=== PATIENT | female | born 1995 | race Caucasian/White ===

== ENCOUNTER 2017-10-11 11:00 | Emergency (ER) | payer OTHER, SELFPAY ==
[2017-10-11 11:13] VITALS: BP 123/78; PULSE 84; RESP 14; TEMP 37.1; O2SAT 100; BMI 29.0
--- NOTE | 2017-10-11 11:41 | ED_ITS ---
HPI - Female Genitourinary General Chief complaint: Vaginal Bleeding Stated complaint: VAGINAL BLEEDING/ABOMDINAL PAIN Time Seen by Provider: 10/11/17 11:06 Source: patient Mode of arrival: ambulatory Limitations: no limitations History of Present Illness HPI Narrative: Patient is a 22-year-old female here for evaluation of vaginal bleeding and lower abdominal pain. She states that it has been going on for the past 2 weeks. She states that she is shelter through her pack of oral control pills. She states that this is the 2nd month she has been on this medication. She denies any urinary symptoms. She states she has been diagnosed with PID in the past however she states that the cultures were negative at that time. This was done by a automobile club information clerk provider. She is concern for PID again. No other vaginal discharge except for the bleeding. No fevers. No skin rashes. No change in bowel habits. Related Data Previous Rx's Medication Instructions Recorded doxycycline hyclate 100 mg PO BID 14 Days #28 cap 10/11/17 hydrocodone-acetaminophen [Kinta] 1 tab PO Q6H PRN #7 tab 10/11/17 Allergies Allergy/AdvReac Type Severity Reaction Status Date / Time dapsone Allergy Verified 10/11/17 11:17 erythromycin base Allergy Verified 10/11/17 11:17 Review of Systems Constitutional Denies fever(s) Cardiovascular Denies chest pain and Denies dyspnea Respiratory Denies dyspnea Gastrointestinal Gastrointestinal: Reports abdominal pain, Denies diarrhea, Denies nausea and Denies vomiting Genitourinary Comments: Vaginal bleeding Musculoskeletal Denies myalgias and Denies arthralgias Integumentary/Breasts Denies lesions and Denies rash Hematologic/Lymphatic Denies easy bleeding and Denies easy bruising [facility] Medical History Chronic joint pain (Acute) Surgical History No pertinent past surgical history (Acute) Social History Smoking Status: Never smoker Exam Initial Vital Signs Initial Vital Signs: Vital Signs Temperature 98.8 F 10/11/17 11:13 Pulse Rate 84 10/11/17 11:13 Respiratory Rate 14 10/11/17 11:13 Blood Pressure 123/78 H 10/11/17 11:13 Pulse Oximetry 100 10/11/17 11:13 Resp Effort & Inspection: normal respiratory effort Auscultation: clear to auscultation bilaterally Cardio Rate: regular rate Rhythm: regular rhythm GI Other: Lower abdominal pain without rebound or guarding Back/Spine/Pelvis Back: No CVA tenderness Skin Lesions: no lesions Rashes: no rashes Neuro General: alert, awake and oriented x3 Cognition: normal cognition Speech: speech normal Gait: normal gait Motor: muscle tone normal throughout Sensory Exam: no sensory deficits noted Extrem General: normal to inspection and capillary refill normal Psych Appearance: grossly normal and well kempt Course Orders Ordered: ED Orders 10/11/17 11:55 Complete Blood Count AUTO DIFF Stat Comprehensive Metabolic Panel Stat Lipase Stat Discontinued Medications Ceftriaxone Sodium (Rocephin) 250 mg IM NOW ONE Stop: 10/11/17 13:28 Last Admin: 10/11/17 13:53 Dose: 250 mg Vital Signs - 8 hr 10/11/17 11:13 10/11/17 13:36 10/11/17 14:07 Temperature 98.8 F 98.3 F Pulse Rate 84 78 74 Respiratory Rate 14 17 16 Blood Pressure 123/78 H 123/73 H Blood Pressure [Right Arm] 129/74 H Pulse Oximetry 100 100 100 MDM - Female Genitourinary Lab Data Attestation: I reviewed the patient's lab results. Result diagrams: 10/11/17 11:55 10/11/17 11:55 Lab Results 10/11/17 10/11/17 10/11/17 Range/Units 11:55 11:55 Unknown WBC 4.0 L (4.5-11.0) X10^3/uL RBC 4.75 (4.0-5.2) X10^6/uL Hgb 13.4 (12.0-16.0) g/dL Hct 38.7 (36-46) % MCV 81.5 (80-100) fL MCH 28.3 (26-34) PG MCHC 34.8 (30-36) % RDW 12.2 (11.6-14.8) % Plt Count 197 (150-400) X10^3/uL Neut % (Auto) 60.4 (50-75) % Lymph % (Auto) 31.5 (25-40) % [place] % (Auto) 6.1 (3-14) % Eos % (Auto) 1.3 L (2-4) % Baso % (Auto) 0.7 (0-2) % Neut # (Auto) 2400 L (4978-7081) /uL Sodium 140 (137-145) mmol/L Potassium 4.2 (3.4-5.1) mmol/L Chloride 104 (98-107) mmol/L Carbon Dioxide 24 (22-32) mmol/L BUN 13 (7-17) mg/dL Creatinine 0.80 (0.52-1.04) mg/dL Estimated GFR > 60.0 (>60) mL/min BUN/Creatinine Ratio 16.3 (6-22) Glucose 86 (70-100) mg/dL Calcium 9.4 (8.4-10.2) mg/dL Total Bilirubin 0.4 (0.2-1.3) mg/dL AST 24 (14-36) IU/L ALT 28 (9-52) IU/L Alkaline Phosphatase 48 (38-126) U/L Total Protein 7.4 (6.3-8.2) g/dL Albumin 4.3 (3.5-5.0) g/dL Globulin 3.1 (1.7-4.1) g/dL Albumin/Globulin Ratio 1.4 (1.0-2.8) Lipase 190 (23-300) U/L Ur Chlamydia DNA (PCR) Not detected N gonorrhoeae DNA (PCR) Not detected MDM Narrative Medical decision making narrative: Patient's urine is unremarkable. test was negative. Labs unremarkable. I did not perform a pelvic exam because the patient did have lower abdominal pain and she states that she was concerned about PID. We did discuss that we could do a pelvic exam versus presumptively treating her with antibiotics versus is waiting until lab results returned seeing as how gonorrhea and chlamydia are the most likely source. Patient opted to just and the treatment performed. I did not feel her physical exam was consistent with an ovarian torsion. She did state that the vaginal bleeding has improved over the past couple days however her lower abdominal pain was worsening. She was trying nonsteroidal anti-inflammatories at home. Had a long discussion with her regarding her symptoms. She was given IM Rocephin and will send home with doxycycline given her allergy to erythromycin. She was instructed to continue her control pills. She was instructed that she needed to contact her primary doctor and/or her automobile club information clerk doctor for follow- up to further evaluate other potential issue such as endometriosis. Patient was given return precautions. She expressed understanding and agreement with plan. Discharge Plan Departure Patient Disposition: Home Clinical Impression: Vaginal bleeding, Acute pelvic inflammatory disease (PID) Discharge Date/Time: 10/11/17 14:08 Interventions: ED Discharge Assessment Last Done: 10/11/17 14:07 Instructions: DI for Pelvic Inflammatory Disease, DI for Vaginal Bleeding Activity Restrictions/Additional Instructions: Recommend that you take all of your medications as directed. Contact your primary care doctor and/or your automobile club information clerk for a follow-up. Continue your control pills as directed. Return to the emergency department for any new or worsening symptoms Prescriptions: New doxycycline hyclate 100 mg capsule 100 mg PO BID 14 Days Qty: 28 RF: 0 hydrocodone-acetaminophen [Kinta] 5-325 mg tablet 1 tab PO Q6H PRN (Reason: pain) Qty: 7 RF: 0
[2017-10-11 12:12] LABS: Add Manual Diff / Slide Review NO; Basophils Percent Auto 0.7 % (0-2); Eosinophils Percent Auto 1.3 % (2-4); Hematocrit 38.7 % (36-46); Hemoglobin 13.4 g/dL (12.0-16.0); Lymphocytes Percent Auto 31.5 % (25-40); Mean Corpuscular HGB Conc 34.8 % (30-36); Mean Corpuscular Hemoglobin 28.3 PG (26-34); Mean Corpuscular Volume 81.5 fL (80-100); Monocytes Percent Auto 6.1 % (3-14); Neutrophils Absolute Auto 2400 /uL (3000-5900); Neutrophils Percent Auto 60.4 % (50-75); Platelet Count 197 X10^3/uL (150-400); Red Blood Cell Count 4.75 X10^6/uL (4.0-5.2); Red Cell Distribution Width 12.2 % (11.6-14.8)
[2017-10-11 12:17] LABS: Alanine Aminotransferase 28 IU/L (9-52); Albumin 4.3 g/dL (3.5-5.0); Albumin Globulin Ratio 1.4 (1.0-2.8); Alkaline Phosphatase 48 U/L (38-126); Aspartate Aminotransferase 24 IU/L (14-36); BUN Creatinine Ratio 16.3 (6-22); Bilirubin Total 0.4 mg/dL (0.2-1.3); Blood Urea Nitrogen 13 mg/dL (7-17); Calcium 9.4 mg/dL (8.4-10.2); Carbon Dioxide 24 mmol/L (22-32); Chloride 104 mmol/L (98-107); Estimated Glomerular Filt Rate > 60.0 mL/min (>60); Globulin 3.1 g/dL (1.7-4.1); Glucose 86 mg/dL (70-100); HEMOLYSIS < 15 (0-50); Lipase 190 U/L (23-300); Potassium 4.2 mmol/L (3.4-5.1); Sodium 140 mmol/L (137-145); Total Protein 7.4 g/dL (6.3-8.2)
[2017-10-11 13:36] VITALS: BP 129/74; PULSE 78; RESP 17; O2SAT 100
[2017-10-11] MEDS: cefTRIAXone 500 MG VIAL 250 MG IM (13:53)
[2017-10-11 14:07] VITALS: BP 123/73; PULSE 74; RESP 16; TEMP 36.8; O2SAT 100
[2017-10-11 15:11] LABS: Urine N gonorrhoeae NOT DETECTED
[2017-10-11 15:43] LABS: Urine Chlamydia NOT DETECTED
== END 2017-10-11 14:08 | disposition home or self-care (01) ==
PROVIDERS: Emergency Provider Emergency Medicine
DX: N73.0 Acute parametritis and pelvic cellulitis (principal); N93.9 Abnormal uterine and vaginal bleeding, unspecified
CPT/HCPCS: 36415; 80053; 81003; 81025; 83690; 85025; 87491; 87591; 96372; 99282; 99283; J0696

== ENCOUNTER → 2020-03-21 12:44 | Outpatient (CLI) | payer OTHER, MEDICAID, SELFPAY ==
--- NOTE | 2020-03-21 12:46 | DI.US.S_ITS ---
PROCEDURE: US PELVIC COMPLETE INDICATIONS: PAIN TECHNIQUE: Real-time scanning was performed of the pelvic organs, with image documentation. Additional endovaginal scanning was necessary due to incomplete visualization of the adnexal and endometrial structures by transabdominal scanning. COMPARISON: None. FINDINGS: Uterus: Uterus is retroverted and normal in size at 6.4 x 3.4 x 4.2 cm. The endometrium measures 4.1 mm in combined thickness. Ovaries: Right ovary measures 4.0 x 2.3 x 3.2 cm and the left 2.1 x 2.6 x 1.6 cm. Regressing physiologic cyst associated with the right ovary measuring up to 2.3 cm. Other: No pathologic free abdominal or pelvic fluid. IMPRESSION: 2.3 cm regressing physiologic right ovarian cyst. Dictated by: Rafael ATKINSON Interpreted: William Nolasco MD on 03/21/2020 at 13:28 Approved by: William Nolasco M.D. on 03/21/2020 at 15:21
== END ==
PROVIDERS: PCP Registered Nurse; Referring Provider Registered Nurse; Visit Provider Registered Nurse
DX: N94.6 Dysmenorrhea, unspecified (principal); N92.0 Excessive and frequent menstruation with regular cycle; N83.291 Other ovarian cyst, right side
CPT/HCPCS: 76830; 76856

== ENCOUNTER → 2020-05-29 15:03 | Outpatient (CLI) | payer OTHER, MEDICAID, SELFPAY | PROVIDERS: PCP Registered Nurse; Visit Provider Obstetrics & Gynecology | DX: N75.0 Cyst of Bartholin's gland (principal) | CPT/HCPCS: 87070; 87075; 87077; 87186; 87205 ==

== ENCOUNTER 2020-10-26 10:24 | Emergency (ER) | payer OTHER, MEDICAID, SELFPAY ==
[2020-10-26 10:32] VITALS: BP 139/87; PULSE 77; RESP 16; TEMP 36.8; O2SAT 99; BMI 34.9
--- NOTE | 2020-10-26 11:27 | DI.RAD.S_ITS ---
PROCEDURE: XR CHEST 2V INDICATIONS: chest pain TECHNIQUE: 2 views of the chest were acquired. COMPARISON: None. FINDINGS: Surgical changes and devices: None. Lungs and pleura: An incomplete inspiratory result is noted, causing a crowded appearance to the lung markings. No focal infiltrates are seen. No pneumothorax or significant pleural effusions are seen. Mediastinum: Mediastinal contours are normal. Heart size is normal. Bones and chest wall: No suspicious bony abnormalities. Soft tissues appear unremarkable. IMPRESSION: No acute cardiopulmonary process is seen. Dictated by: Jericho Drake M.D. on 10/26/2020 at 10:58 Approved by: Jericho Drake M.D. on 10/26/2020 at 10:58
--- NOTE | 2020-10-26 12:16 | ED_ITS ---
HPI - Chest Pain General Chief Complaint: Chest Pain Stated Complaint: chest pain and joint pain Time Seen by Provider: 10/26/20 12:12 Source: patient Mode of arrival: Ambulatory Limitations: no limitations History of Present Illness HPI narrative: Patient is a 25-year-old female with multiple immune issues and joint problems, including Bechets. She was on his immunosuppressants for a number of years but when she went to college she stopped. However over the past few months things have gotten worse. 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 Here today because she has had a few weeks of increasing sternal pain. Hurts every time she moves or breathes last night it was significantly worse. She denies shortness of breath fever or chills. She also is having chronic right heel pain were her Achilles tendon inserts. That are so bad that she is using a cane. She is tearful she cannot take NSAIDs he had been taking Tylenol and nothing is helping. She currently does not have any other joint pains Related Data Home Medications Medication Instructions Recorded Confirmed clonazepam 0.5 mg tablet 0.5 mg PO DAILY 11/15/19 09/22/20 oxcarbazepine 600 mg tablet 600 mg PO BID 11/15/19 09/22/20 (Trileptal) sertraline 100 mg tablet (Zoloft) 100 mg PO DAILY 11/15/19 09/22/20 quetiapine 100 mg tablet (Seroquel) 100 mg PO BEDTIME 03/14/20 09/22/20 Previous Rx's Medication Instructions Recorded clindamycin phosphate 1 % topical 1 applic TOPICAL DAILY #60 g 01/15/20 gel triamcinolone acetonide 0.025 % 1 applic TOPICAL BID #15 g 09/22/20 topical cream prednisone 10 mg tablet 10 mg PO DAILY #30 tab 10/26/20 Allergies Allergy/AdvReac Type Severity Reaction Status Date / Time dapsone Allergy Verified 05/29/20 14:11 erythromycin base Allergy Verified 05/29/20 14:11 Review of Systems Review of Systems Narrative: GENERAL: Denies chills, fatigue, malaise, fever, sweats, travel HEENT: Denies sinus pain, ear pain, sore throat, difficulty swallowing, neck pain RESPIRATORY: Denies dyspnea, cough, wheezing, hemoptysis, sputum. CARDIOVASCULAR: See HPI GASTROINTESTINAL: Denies nausea, vomiting, abdominal pain, diarrhea, constipation, melena. : Denies dysuria, frequency, incontinence, hematuria, urinary retention, flank pain. MUSCULOSKELETAL: See HPI SKIN: No rash, no erythema, no pruritus NEUROLOGIC: Denies weakness, dizziness, headache, numbness, change in speech, confusion PSYCHIATRIC: No concerning psychosocial issues. 12 point review of systems is negative except for those stated above and HPI Patient History Medical History Chicken pox Chronic joint pain Dermatitis Memory impairment Surgical History Anesthesia History of bone marrow biopsy No pertinent past surgical history Cartwright teeth removed Family History Father Mental health problem Mother Mental health problem Brother Mental health problem Sister Mental health problem Grandmother Mental health problem Aneurysm Grandfather Hypertension Hyperlipidemia Mental health problem Grandmother Hypertension Hyperlipidemia Psoriatic arthritis Social History Smoking Status: Never smoker Smoking Status: Never smoker alcohol intake frequency: holidays/special occasions only Substance Use Type: does not use Exam Initial Vital Signs Initial Vital Signs: Vital Signs Temperature 98.3 F 10/26/20 10:32 Pulse Rate 77 10/26/20 10:32 Respiratory Rate 16 10/26/20 10:32 Blood Pressure 139/87 10/26/20 10:32 Pulse Oximetry 99 10/26/20 10:32 GENERAL: Tearful going 5-year-old female HEENT: Head atraumatic,EOMI, pupils reactive, face symmetric, moist mucous membranes CARDIOVASCULAR: Regular rate and rhythm without murmurs, rubs or gallops. RESPIRATORY: Breath sounds equal bilaterally, no wheezes rales or rhonchi. ABDOMEN: Soft, nontender. Normoactive bowel sounds all 4 quadrants. No guarding or rebound. EXTREMITIES: Normal range of motion, no clubbing or edema. Neurovascularly i ntact Right heel pain off at insertion of Achilles but Achilles is intact able to flex and extend. Calf is soft NEUROLOGICAL: Alert and oriented x4.Normal gait and speech. SKIN: Warm, dry, no laceration, no petechiae, no rashes or lesions. Course Orders Ordered: ED Orders 10/26/20 10:40 EKG-12 Lead Routine 10/26/20 11:27 Chest [XR chest 2V] Stat 10/26/20 12:11 COVID19 -Nasal swab/Pre-Proc Stat Vital Signs Vital signs: Vital Signs - 8 hr 10/26/20 10:32 Temperature 98.3 F Pulse Rate 77 Respiratory Rate 16 Blood Pressure 139/87 Pulse Oximetry 99 MDM - Chest Pain Lab Data Result diagrams: 10/26/20 12:39 10/26/20 12:39 Labs: Lab Results 10/26/20 10/26/20 10/26/20 Range/Units 12:09 12:39 12:39 WBC 5.2 (4.5-11.0) X10^3/uL RBC 4.59 (4.0-5.2) X10^6/uL Hgb 14.0 (12.0-16.0) g/dL Hct 40.1 (36-46) % MCV 87.5 (80-100) fL MCH 30.5 (26-34) PG MCHC 34.8 (30-36) % RDW 12.5 (11.6-14.8) % Plt Count 193 (150-400) X10^3/uL Neut % (Auto) 63.9 (50-75) % Lymph % (Auto) 23.4 L (25-40) % [place] % (Auto) 5.3 (3-14) % Eos % (Auto) 4.4 H (2-4) % Baso % (Auto) 3.0 H (0-2) % Neut # (Auto) 3300 (7907-7857) /uL Lymph # (Auto) 1200 (4687-3397) /uL [place] # (Auto) 300 (0-900) /uL Eos # (Auto) 200 (0-450) /uL Baso # (Auto) 200 H (0-100) /uL ESR 7 (0-20) MM/HR Sodium 137 (137-145) mmol/L Potassium 4.3 (3.4-5.1) mmol/L Chloride 106 (98-107) mmol/L Carbon Dioxide 25 (22-32) mmol/L BUN 9 (7-17) mg/dL Creatinine 0.86 (0.52-1.04) mg/dL Estimated GFR > 60.0 (>60) mL/min BUN/Creatinine Ratio 10.5 (6-22) Glucose 90 (70-100) mg/dL Calcium 9.1 (8.4-10.2) mg/dL Total Bilirubin 0.5 (0.2-1.3) mg/dL AST 23 (14-36) IU/L ALT 17 (<35) IU/L Alkaline Phosphatase 85 (38-126) U/L Total Creatine Kinase 61 (30-135) U/L CK-MB (CK-2) TNP CK-MB (CK-2) Rel Index TNP Troponin I < 0.012 (0.01-0.034) ng/mL C-Reactive Protein 1.2 H (<1.0) mg/dL Total Protein 7.7 (6.3-8.2) g/dL Albumin 4.4 (3.5-5.0) g/dL Globulin 3.3 (1.7-4.1) g/dL Albumin/Globulin Ratio 1.3 (1.0-2.8) SARS-CoV-2 (PCR) Negative (Negative) Imaging Data Chest x-ray: Radiologist's Impression: PROCEDURE:? XR CHEST 2V ? INDICATIONS:? chest pain ? TECHNIQUE:? 2 views of the chest were acquired.? ? COMPARISON:? None. ? FINDINGS:? ? Surgical changes and devices:? None.? ? Lungs and pleura:? An incomplete inspiratory result is noted, causing a crowded appearance to the lung markings.? No focal infiltrates are seen.? No pneumothorax or significant pleural effusions are seen. ? ? Mediastinum:? Mediastinal contours are normal.? Heart size is normal.? ? Bones and chest wall:? No suspicious bony abnormalities.? Soft tissues appear unremarkable.? ? IMPRESSION:? ? No acute cardiopulmonary process is seen.? Dictated by: Jericho Drake M.D. on 10/26/2020 at 10:58 ? ? ECG Data Interpretation: Normal sinus rhythm rate 70 LA interval 140 QRS [address] changes T-wave inversions MDM Narrative Medical decision making narrative: Patient's sternum is quite tender to touch seems to be inflammation and musculoskeletal. Blood work is overall reassuring. No significant elevations an ESR or CRP. She is unable to take NSAIDs secondary to a GI bleed. Will try prednisone she says she was previously on prednisone for number of years she does not want to be on it for years but is willing to take it for short time. Will give her a small taper. She has no sign of rupture her Achilles Discharge Plan Departure Patient Disposition: Home Clinical Impression: Atypical chest pain Achilles tendinitis Qualifiers: Laterality: right Qualified Code(s): M76.61 - Achilles tendinitis, right leg Instructions: Achilles Tendinopathy, DI for Atypical Chest Pain Activity Restrictions/Additional Instructions: *You have been diagnosed with Achilles tendinitis, atypical chest pain *What to do: At this time I believe your pain to be from probably inflammatory process. Lets try course of prednisone with close follow-up with her primary care provider *Continue to take medications as directed--> SENT TO [facility] Prednisone 40 mg for 3 days, 30 mg for 3 days, 20 mg for 3 days, 10 mg for 3 days *Follow up with your primary care provider in 2-3 days *Return to ER if you should have increasing pain, shortness of breath, feveror any new, worsening or concerning symptoms Prescriptions: New prednisone 10 mg tablet 10 mg PO DAILY Qty: 30 RF: 0 No Action clindamycin phosphate 1 % gel 1 applic topical DAILY Qty: 60 RF: 0 oxcarbazepine [Trileptal] 600 mg tablet 600 mg PO BID RF: 0 sertraline [Zoloft] 100 mg tablet 100 mg PO DAILY RF: 0 clonazepam 0.5 mg tablet 0.5 mg PO DAILY RF: 0 quetiapine [Seroquel] 100 mg tablet 100 mg PO BEDTIME RF: 0 triamcinolone acetonide 0.025 % cream 1 applic topical BID Qty: 15 RF: 1 Referrals: Dulce Rose ARNP [Primary Care Provider] -
[2020-10-26 12:32] LABS: COVID19 -Nasal RAPID Negative (Negative)
[2020-10-26 12:46] LABS: Add Manual Diff / Slide Review NO; Basophils Absolute Auto 200 /uL (0-100); Eosinophils Absolute Auto 200 /uL (0-450); Eosinophils Percent Auto 4.4 % (2-4); Hematocrit 40.1 % (36-46); Lymphocytes Absolute Auto 1200 /uL (1100-4500); Lymphocytes Percent Auto 23.4 % (25-40); Mean Corpuscular HGB Conc 34.8 % (30-36); Mean Corpuscular Hemoglobin 30.5 PG (26-34); Mean Corpuscular Volume 87.5 fL (80-100); Monocytes Absolute Auto 300 /uL (0-900); Monocytes Percent Auto 5.3 % (3-14); Neutrophils Absolute Auto 3300 /uL (1500-7000); Neutrophils Percent Auto 63.9 % (50-75); Platelet Count 193 X10^3/uL (150-400); Red Blood Cell Count 4.59 X10^6/uL (4.0-5.2); Red Cell Distribution Width 12.5 % (11.6-14.8); White Blood Cell Count 5.2 X10^3/uL (4.5-11.0)
[2020-10-26 12:56] LABS: Alanine Aminotransferase 17 IU/L (<35); Albumin 4.4 g/dL (3.5-5.0); Albumin Globulin Ratio 1.3 (1.0-2.8); Alkaline Phosphatase 85 U/L (38-126); Aspartate Aminotransferase 23 IU/L (14-36); BUN Creatinine Ratio 10.5 (6-22); Bilirubin Total 0.5 mg/dL (0.2-1.3); Blood Urea Nitrogen 9 mg/dL (7-17); Calcium 9.1 mg/dL (8.4-10.2); Carbon Dioxide 25 mmol/L (22-32); Chloride 106 mmol/L (98-107); Creatine Kinase 61 U/L (30-135); Estimated Glomerular Filt Rate > 60.0 mL/min (>60); Globulin 3.3 g/dL (1.7-4.1); Glucose 90 mg/dL (70-100); HEMOLYSIS < 15 (0-50); Potassium 4.3 mmol/L (3.4-5.1); Sodium 137 mmol/L (137-145); Total Protein 7.7 g/dL (6.3-8.2)
[2020-10-26 13:07] LABS: Troponin I < 0.012 ng/mL (0.01-0.034)
[2020-10-26 13:11] LABS: Erythrocyte Sedimentation Rate 7 MM/HR (0-20)
[2020-10-26 13:30] VITALS: BP 139/87; PULSE 77; RESP 18; O2SAT 97
[2020-10-26 13:48] LABS: C-Reactive Protein Quant 1.2 mg/dL (<1.0)
== END 2020-10-26 13:30 | disposition home or self-care (01) ==
PROVIDERS: Emergency Provider Emergency Medicine; PCP Registered Nurse
DX: R07.89 Other chest pain (principal); M76.61 Achilles tendinitis, right leg; Z20.822 Contact with and (suspected) exposure to COVID-19
CPT/HCPCS: 36415; 71046; 80053; 82550; 84484; 85025; 85651; 86140; 87635; 93005; 99282; 99284; C9803

== ENCOUNTER 2020-11-27 09:24 | Emergency (ER) | payer OTHER, MEDICAID, SELFPAY ==
[2020-11-27] VITALS (14 sets, daily range): BP systolic 106–134; BP diastolic 55–82; PULSE 56–79; RESP 12–35; TEMP 37.1; O2SAT 95–100; BMI 37.9
--- NOTE | 2020-11-27 09:37 | ED_ITS ---
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 Three days ago she noted right eye and right-sided head pain. She has had a history of uveitis but this feels different and she is not noting any scleral irritation in the right eye. S she notes that she has been light sensitive over the last 3 days. She complai ns of some occipital insertion pain on the right side with no prior trauma. She does carry a diagnosis of migraine. She notes that there have been a number of medications in the last couple of days lithium was started 2 days ago as well as indomethacin and ramelteon for insomnia. She spoke with her recovery analyst this morning who was worried about a stroke and suggested that she come in for fur ther evaluation. Patient is exceptionally concerned about her family history and the right-sided headache and is convinced that she has both a brain tumor and an aneurysm. That she had both a brain CT and MRI in April of 2019 that were unremarkable(these were done at [facility]). Related Data Home Medications Medication Instructions Recorded Confirmed clonazepam 0.5 mg tablet 0.5 mg PO DAILY 11/15/19 09/22/20 oxcarbazepine 600 mg tablet 600 mg PO BID 11/15/19 09/22/20 (Trileptal) sertraline 100 mg tablet (Zoloft) 100 mg PO DAILY 11/15/19 09/22/20 quetiapine 100 mg tablet (Seroquel) 100 mg PO BEDTIME 03/14/20 09/22/20 Previous Rx's Medication Instructions Recorded clindamycin phosphate 1 % topical 1 applic TOPICAL DAILY #60 g 01/15/20 gel triamcinolone acetonide 0.025 % 1 applic TOPICAL BID #15 g 09/22/20 topical cream prednisone 10 mg tablet 10 mg PO DAILY #30 tab 10/26/20 Allergies Allergy/AdvReac Type Severity Reaction Status Date / Time dapsone Allergy Verified 11/27/20 09:31 erythromycin base Allergy Verified 11/27/20 09:31 Review of Systems Review of Systems Narrative: Remainder of complete review of systems is otherwise unremarkable except for that included in the HPI. Patient History Medical History (Updated 11/27/20 @ 13:51 by Nicci Gaming MD) Behcet's disease Chicken pox Chronic joint pain Depression Dermatitis Memory impairment Migraines Seizures Surgical History Anesthesia History of bone marrow biopsy No pertinent past surgical history [place] teeth removed Family History Father Mental health problem Mother Mental health problem Brother Mental health problem Sister Mental health problem Grandmother Mental health problem Aneurysm Grandfather Hypertension Hyperlipidemia Mental health problem Grandmother Hypertension Hyperlipidemia Psoriatic arthritis Social History Smoking Status: Never smoker Smoking Status: Never smoker alcohol intake frequency: holidays/special occasions only Substance Use Type: marijuana Exam Narrative Exam Narrative: General: Healthy appearing, anxious and frightened but able to give a complete and coherent history. Well-nourished well-developed HEENT: Moist mucous membranes, normal sclera with reactive pupils, no reported visual changes Neck: No JVD, supple. Tenderness at the occipital insertion right side Respiratory: Lungs are clear to auscultation, no wheezing no rales no rhonchi. Full and symmetrical air movement Cardiac: Regular rate and rhythm no murmurs no bruits Abdomen: Soft, nontender, good bowel tones, no flank pain Skin: Warm and dry, no rashes Neurologic: Grossly neurologically intact with no obvious asymmetries or abnormalities Extremities: No trauma, well perfused Psych: Cooperative, appropriate insight and affect Initial Vital Signs Initial Vital Signs: Vital Signs Temperature 98.8 F 11/27/20 09:25 Pulse Rate 69 11/27/20 09:25 Respiratory Rate 15 11/27/20 09:25 Blood Pressure 126/81 11/27/20 09:25 Pulse Oximetry 96 11/27/20 09:25 Course Orders Ordered: ED Orders 11/27/20 10:20 Complete Blood Count AUTO DIFF Stat Comprehensive Metabolic Panel Stat 11/27/20 12:57 CT head/brain wo con Stat Discontinued Medications Dexamethasone (Dexamethasone 10 Mg/Ml Vial) 10 mg IV NOW ONE Stop: 11/27/20 10:23 Last Admin: 11/27/20 10:48 Dose: 10 mg Documented by: WALTER Diphenhydramine HCl (Diphenhydramine 50 Mg/Ml Vial) 25 mg IV NOW ONE Stop: 11/27/20 10:23 Last Admin: 11/27/20 10:49 Dose: 25 mg Documented by: WALTER Sodium Chloride (Normal Saline 0.9%) 1,000 mls @ 1,000 mls/hr IV BOLUS ONE Stop: 11/27/20 11:21 Last Infusion: 11/27/20 11:58 Dose: 0 mls/hr Documented by: Admin: 11/27/20 10:48 Dose: 1,000 mls/hr Documented by: WALTER Ketorolac Tromethamine (Ketorolac 30 Mg/Ml Vial) 15 mg IV NOW ONE Stop: 11/27/20 10:24 Last Admin: 11/27/20 10:48 Dose: 15 mg Documented by: WALTER Metoclopramide HCl (Metoclopramide 10 Mg/2 Ml Inj) 10 mg IV NOW ONE Stop: 11/27/20 10:23 Last Admin: 11/27/20 10:48 Dose: 10 mg Documented by: WALTER Vital Signs Vital signs: Vital Signs - 8 hr 11/27/20 09:25 11/27/20 09:51 11/27/20 09:52 Temperature 98.8 F Pulse Rate 69 73 73 Respiratory Rate 15 Blood Pressure 126/81 128/82 Pulse Oximetry 96 95 100 11/27/20 10:00 11/27/20 10:30 11/27/20 10:35 Temperature Pulse Rate 67 70 71 Respiratory Rate 15 20 26 H Blood Pressure 113/73 119/55 L Pulse Oximetry 98 99 99 11/27/20 11:00 11/27/20 11:11 11/27/20 11:30 Temperature Pulse Rate 67 56 L 70 Respiratory Rate 35 H 12 18 Blood Pressure 124/60 112/64 Pulse Oximetry 100 98 11/27/20 12:00 11/27/20 12:30 11/27/20 13:00 Temperature Pulse Rate 61 72 79 Respiratory Rate 18 16 18 Blood Pressure 115/76 117/67 106/59 L Pulse Oximetry 100 99 98 MDM - Headache Lab Data Result diagrams: 11/27/20 10:20 11/27/20 10:20 Labs: Lab Results 11/27/20 11/27/20 Range/Units 10:20 10:20 WBC 7.6 (4.5-11.0) X10^3/uL RBC 4.51 (4.0-5.2) X10^6/uL Hgb 13.4 (12.0-16.0) g/dL Hct 39.4 (36-46) % MCV 87.5 (80-100) fL MCH 29.7 (26-34) PG MCHC 34.0 (30-36) % RDW 12.4 (11.6-14.8) % Plt Count 197 (150-400) X10^3/uL Neut % (Auto) 80.4 H (50-75) % Lymph % (Auto) 14.6 L (25-40) % [place] % (Auto) 3.1 (3-14) % Eos % (Auto) 1.6 L (2-4) % Baso % (Auto) 0.3 (0-2) % Neut # (Auto) 6100 (7641-4592) /uL Lymph # (Auto) 1100 (5024-0459) /uL [place] # (Auto) 200 (0-900) /uL Eos # (Auto) 100 (0-450) /uL Baso # (Auto) 0 (0-100) /uL Sodium 139 (137-145) mmol/L Potassium 4.2 (3.4-5.1) mmol/L Chloride 108 H (98-107) mmol/L Carbon Dioxide 23 (22-32) mmol/L BUN 14 (7-17) mg/dL Creatinine 0.70 (0.52-1.04) mg/dL Estimated GFR > 60.0 (>60) mL/min BUN/Creatinine Ratio 20.0 (6-22) Glucose 100 (70-100) mg/dL Calcium 9.0 (8.4-10.2) mg/dL Total Bilirubin 0.5 (0.2-1.3) mg/dL AST 22 (14-36) IU/L ALT 16 (<35) IU/L Alkaline Phosphatase 76 (38-126) U/L Total Protein 7.5 (6.3-8.2) g/dL Albumin 4.4 (3.5-5.0) g/dL Globulin 3.1 (1.7-4.1) g/dL Albumin/Globulin Ratio 1.4 (1.0-2.8) Imaging Data CT scan - head: Radiologist's Impression: FINDINGS: Image quality: Excellent. CSF spaces: Basal cisterns are patent. No extra-axial fluid collections. Ventricles are normal in size and shape. Brain: No midline shift. No intracranial masses or hemorrhage. Aaron-white matter interface is normal. Skull and face: Calvarium and visualized facial bones are intact, without suspicious lesions. Sinuses: Visualized sinuses and mastoids are clear. IMPRESSION: Normal CT of the brain Approved by: Josue Romero M.D. on 11/27/2020 at 12:11 MDM Narrative Medical decision making narrative: 25-year-old woman presents with 3-4 episodes of unprovoked emesis 5:00 a.m. in the morning. She has not been sexually active for more than 2 years and is not currently . She is concerned that she is developing a brain aneurysm and over the last 3 days has had a right-sided headache with right occipital insertion pain. She has had 2 new medicines changed and some others adjusted. She is quite anxious overall of her symptoms. Concerned about family history of aneurysms, strokes, rheumatologic diseases etc.. At this time there is no evidence of any life-threatening abnormalities, no evidence of intracranial mass tumor or bleeding, no suggestion of uveitis most likely explanation is a migraine headache exacerbated by her anxiety. She had minimal change with the medications infused however she clinically is looking and acting like she has far less pain than she did on arrival. Reassurance is given and recommended that she follow-up with her primary care physician. She again requested an MRI to make sure that she did not have the developing aneurysm. I reassured her that that is not consistent with her presentation today and would be very appropriate to discuss with her primary care physician to discuss scheduling an outpatient MRI for follow-up. Questions are answered and she is safe for home discharge Discharge Plan Departure Patient Disposition: Home Clinical Impression: Headache Instructions: DI for Headache Activity Restrictions/Additional Instructions: Thank you for coming in today I am very reassuring with the workup that we did today. Your exam itself is reassuring. Your blood work does not show any significant abnormalities. The CT scan of your brain does not show any masses, tumors, sinusitis or evidence of bleeding. The most likely explanation for your headache is migraine which can be exacerbated with the medications your currently changing and adding. Please schedule follow-up appointment with your primary care physician for sometime next week. If the headache and vomiting are still present than you can certainly discuss the need for an outpatient MRI. At this time, I think it is safe for you to go home. I wish you the best Prescriptions: No Action clindamycin phosphate 1 % gel 1 applic topical DAILY Qty: 60 RF: 0 oxcarbazepine [Trileptal] 600 mg tablet 600 mg PO BID RF: 0 sertraline [Zoloft] 100 mg tablet 100 mg PO DAILY RF: 0 clonazepam 0.5 mg tablet 0.5 mg PO DAILY RF: 0 quetiapine [Seroquel] 100 mg tablet 100 mg PO BEDTIME RF: 0 triamcinolone acetonide 0.025 % cream 1 applic topical BID Qty: 15 RF: 1 prednisone 10 mg tablet 10 mg PO DAILY Qty: 30 RF: 0 Referrals: Dulce Rose ARNP [Primary Care Provider] -
[2020-11-27 10:32] LABS: Add Manual Diff / Slide Review NO; Basophils Absolute Auto 0 /uL (0-100); Basophils Percent Auto 0.3 % (0-2); Eosinophils Absolute Auto 100 /uL (0-450); Eosinophils Percent Auto 1.6 % (2-4); Hematocrit 39.4 % (36-46); Hemoglobin 13.4 g/dL (12.0-16.0); Lymphocytes Absolute Auto 1100 /uL (1100-4500); Lymphocytes Percent Auto 14.6 % (25-40); Mean Corpuscular Hemoglobin 29.7 PG (26-34); Mean Corpuscular Volume 87.5 fL (80-100); Monocytes Absolute Auto 200 /uL (0-900); Monocytes Percent Auto 3.1 % (3-14); Neutrophils Absolute Auto 6100 /uL (1500-7000); Neutrophils Percent Auto 80.4 % (50-75); Platelet Count 197 X10^3/uL (150-400); Red Blood Cell Count 4.51 X10^6/uL (4.0-5.2); Red Cell Distribution Width 12.4 % (11.6-14.8); White Blood Cell Count 7.6 X10^3/uL (4.5-11.0)
[2020-11-27 10:43] LABS: Alanine Aminotransferase 16 IU/L (<35); Albumin 4.4 g/dL (3.5-5.0); Albumin Globulin Ratio 1.4 (1.0-2.8); Alkaline Phosphatase 76 U/L (38-126); Aspartate Aminotransferase 22 IU/L (14-36); Bilirubin Total 0.5 mg/dL (0.2-1.3); Blood Urea Nitrogen 14 mg/dL (7-17); Carbon Dioxide 23 mmol/L (22-32); Chloride 108 mmol/L (98-107); Estimated Glomerular Filt Rate > 60.0 mL/min (>60); Globulin 3.1 g/dL (1.7-4.1); Glucose 100 mg/dL (70-100); HEMOLYSIS < 15 (0-50); Potassium 4.2 mmol/L (3.4-5.1); Sodium 139 mmol/L (137-145); Total Protein 7.5 g/dL (6.3-8.2)
[2020-11-27] MEDS: METOCLOPRAMIDE 10 MG/2 ML INJ IV (10:48)
[2020-11-27] MEDS: SODIUM CHLORIDE 0.9% 1,000 ML 1000 ML IV (10:48)
[2020-11-27] MEDS: KETOROLAC 30 MG/ML VIAL 15 MG IV (10:48)
[2020-11-27] MEDS: DEXAMETHASONE 10 MG/ML VIAL IV (10:48)
[2020-11-27] MEDS: diphenhydrAMINE 50 MG/ML VIAL 25 MG IV (10:49)
--- NOTE | 2020-11-27 12:57 | DI.CT.S_ITS ---
PROCEDURE: CT HEAD/BRAIN WO CON INDICATIONS: Right side head pain/eye pain for 3 days TECHNIQUE: Noncontrast 4.5 mm thick angled axial sections acquired from the foramen magnum to the vertex, with coronal and sagittal reformats. For radiation dose reduction, the following was used: automated exposure control, adjustment of mA and/or kV according to patient size. COMPARISON: None. FINDINGS: Image quality: Excellent. CSF spaces: Basal cisterns are patent. No extra-axial fluid collections. Ventricles are normal in size and shape. Brain: No midline shift. No intracranial masses or hemorrhage. Aaron-white matter interface is normal. Skull and face: Calvarium and visualized facial bones are intact, without suspicious lesions. Sinuses: Visualized sinuses and mastoids are clear. IMPRESSION: Normal CT of the brain Approved by: Josue Romero M.D. on 11/27/2020 at 12:11
== END 2020-11-27 14:16 | disposition home or self-care (01) ==
PROVIDERS: Emergency Provider Emergency Medicine; PCP Registered Nurse
DX: R51.9 Headache, unspecified (principal); R11.10 Vomiting, unspecified
CPT/HCPCS: 36415; 70450; 80053; 85025; 96361; 96374; 96375; 99284; J1100; J1200; J1885; J2765

== ENCOUNTER 2020-12-01 19:10 | Emergency (ER) | payer OTHER, MEDICAID, SELFPAY ==
[2020-12-01] VITALS (14 sets, daily range): BP systolic 106–123; BP diastolic 55–70; PULSE 61–94; RESP 18; TEMP 36.2; O2SAT 91–100; BMI 36.6
--- NOTE | 2020-12-01 19:45 | ED_ITS ---
HPI - Nausea/Vomiting/Diarrhea General Chief complaint: Nausea/Vomiting/Diarrhea Stated complaint: PUKING VOMITTING OLD BLOOD RT EYE PAIN Time Seen by Provider: 12/01/20 20:19 Source: patient Mode of arrival: Wheelchair Limitations: no limitations History of Present Illness HPI Narrative: 25-year-old female nonsmoker with history of seizures presents with a chief complaint of upwards of 2 weeks of nausea, vomiting, diarrhea, generalized abdominal pain and also some pain behind her right eye. She is concerned because she has had sufficient nausea and vomiting to make it hard for her to keep her chronic medications down which is causing her concern for obvious reasons. She has had no seizure activity. She denies any trauma or head injury. She denies any recent medication change or dietary change. She echols s had no recent antibiotics, denies recent travel or exposure to other ill persons. She has had gradually worsening discomfort behind her right eye but denies any trauma or injury to the eye. She denies any pain with extraocular motion. She denies any blurred vision or difficulty seeing. Related Data Home Medications Medication Instructions Recorded Confirmed clonazepam 0.5 mg tablet 0.5 mg PO DAILY 11/15/19 09/22/20 oxcarbazepine 600 mg tablet 600 mg PO BID 11/15/19 09/22/20 (Trileptal) sertraline 100 mg tablet (Zoloft) 100 mg PO DAILY 11/15/19 09/22/20 quetiapine 100 mg tablet (Seroquel) 100 mg PO BEDTIME 03/14/20 09/22/20 Previous Rx's Medication Instructions Recorded clindamycin phosphate 1 % topical 1 applic TOPICAL DAILY #60 g 01/15/20 gel triamcinolone acetonide 0.025 % 1 applic TOPICAL BID #15 g 09/22/20 topical cream prednisone 10 mg tablet 10 mg PO DAILY #30 tab 10/26/20 Allergies Allergy/AdvReac Type Severity Reaction Status Date / Time dapsone Allergy Verified 12/01/20 19:24 erythromycin base Allergy Verified 12/01/20 19:24 Review of Systems Review of Systems Narrative: GENERAL: See HPI HEENT: Denies sinus pain, ear pain, sore throat, difficulty swallowing, dizziness. RESPIRATORY: Denies dyspnea, cough, wheezing, hemoptysis, sputum. CARDIOVASCULAR: Denies chest pain, palpitations, orthopnea, edema, GASTROINTESTINAL: See HPI : Denies dysuria, frequency, incontinence, hematuria, urinary retention. MUSCULOSKELETAL: denies weakness, joint pain, or bony pain SKIN: Denies rash, skin lesions, or other NEUROLOGIC: Denies weakness, headache, numbness, change in speech, confusion, seizures, incoordination. PSYCHIATRIC: No concerning psychosocial issues. 12 point review of systems is negative except for those stated above Patient History Medical History Behcet's disease Chicken pox Chronic joint pain Depression Dermatitis Memory impairment Migraines Seizures Surgical History Anesthesia History of bone marrow biopsy No pertinent past surgical history [place] teeth removed Family History Father Mental health problem Mother Mental health problem Brother Mental health problem Sister Mental health problem Grandmother Mental health problem Aneurysm Grandfather Hypertension Hyperlipidemia Mental health problem Grandmother Hypertension Hyperlipidemia Psoriatic arthritis Social History Smoking Status: Never smoker Smoking Status: Never smoker alcohol intake frequency: holidays/special occasions only Substance Use Type: marijuana Exam Narrative Exam Narrative: GENERAL: [25 year old patient appears stated age. Well-developed patient, in mild distress. Appears to feel unwell, tearful and anxious HEAD: Atraumatic. Normocephalic. EYES: Pupils equal round and reactive. Extraocular motions intact. No scleral icterus. No injection or drainage. No pain with use of extraoculars. Visual acuity notes OS 20/20, OD 20/50. Pressure in R eye 35-38. L eye in mid 20s. No uptake with fluorescein. Minimal change with proparacaine. Bedside ultrasound notes no obvious retinal issue, optic nerve sheath < 5mm (no obvious fundoscopic findings) ENT: Nose without bleeding, purulent drainage. Throat without erythema, tonsillar hypertrophy or exudate. Airway patent. NECK: Trachea midline. Non tender CARDIOVASCULAR: Regular rate and rhythm without murmurs, gallops, or rubs. RESPIRATORY: Clear to auscultation. Breath sounds equal bilaterally. No wheezes, rales, or rhonchi. GASTROINTESTINAL: Abdomen soft, non-tender, nondistended. EXTREMITIES: No edema or joint tenderness. BACK: Nontender without deformity or crepitance. No flank tenderness. NEURO: AOx3. SKIN: No rash or erythema of visible areas Initial Vital Signs Initial Vital Signs: Vital Signs Temperature 97.2 F L 12/01/20 19:24 Pulse Rate 70 12/01/20 19:24 Respiratory Rate 18 12/01/20 19:24 Blood Pressure 121/67 12/01/20 19:24 Pulse Oximetry 100 12/01/20 19:24 Course Orders Ordered: Discontinued Medications Brimonidine Tartrate (Brimonidine 0.2% Ophth 5 Ml) 1 drops EYE-RIGHT BID [facility] Last Admin: 12/02/20 00:03 Dose: 1 drops Documented by: ANKITA Dorzolamide HCl (Dorzolamide 2% Ophth 10 Ml) 1 drops EYE-RIGHT BID [facility] Last Admin: 12/02/20 00:38 Dose: 1 drops Documented by: PATI Fluorescein Sodium (Fluorescein 1 Mg Strip) 1 mg EYE-RIGHT NOW ONE Stop: 12/01/20 22:55 Last Admin: 12/01/20 23:00 Dose: 1 mg Documented by: ANKITA Sodium Chloride (Normal Saline 0.9%) 1,000 mls @ 1,000 mls/hr IV BOLUS ONE Stop: 12/01/20 21:23 Last Infusion: 12/01/20 23:04 Dose: 0 mls/hr Documented by: Admin: 12/01/20 20:36 Dose: 1,000 mls/hr Documented by: ANKITA Ketorolac Tromethamine (Ketorolac 30 Mg/Ml Vial) 15 mg IV NOW ONE Stop: 12/01/20 21:45 Last Admin: 12/01/20 21:52 Dose: 15 mg Documented by: ANKITA Latanoprost (Latanoprost 0.005% Ophth 2.5 Ml) 1 drops EYE-RIGHT BEDTIME [facility] Latanoprost (Latanoprost 0.005% Ophth 2.5 Ml) 1 drops EYE-RIGHT BEDTIME [facility] Last Admin: 12/02/20 00:49 Dose: 1 drops Documented by: ANKITA Ondansetron HCl (Ondansetron 4 Mg/2 Ml Inj) 4 mg IV NOW ONE Stop: 12/01/20 20:25 Last Admin: 12/01/20 20:36 Dose: 4 mg Documented by: ANKITA Ondansetron HCl (Ondansetron 4 Mg Odt Prepack) 1 bottle MISC SEEINSTR ONE Stop: 12/02/20 03:44 Last Admin: 12/02/20 04:09 Dose: 1 bottle Documented by: ANKITA Pantoprazole Sodium (Pantoprazole 40 Mg Vial) 40 mg IV NOW ONE Stop: 12/01/20 20:25 Last Admin: 12/01/20 20:36 Dose: 40 mg Documented by: ANKITA Proparacaine HCl (Proparacaine 0.5% Ophth Jessica) 1 drops EYE-RIGHT NOW ONE Stop: 12/01/20 21:45 Last Admin: 12/01/20 21:52 Dose: 1 drop Documented by: ANKITA Timolol Maleate (Timolol 0.25% Ophth) 1 drops EYE-RIGHT NOW ONE Stop: 12/01/20 23:24 Last Admin: 12/02/20 00:08 Dose: 1 drop Documented by: ANKITA Reevaluation(s) Reevaluation #1: 30 minutes after administration various topicals patient's visual acuity has improved to 20/30 in right eye. Pain behind eye completely gone. Pressure improved to 24mmHg Consultations Consultation #1: call to ophtho at [facility] to discuss case. Suggests a combination of topicals including timolol, brimonidine, latanoprost, dorzolamide and recheck. No need for now to transfer, unless no change Vital Signs Vital signs: Vital Signs - 8 hr 12/01/20 19:24 12/01/20 19:40 12/01/20 20:00 Temperature 97.2 F L Pulse Rate 70 78 76 Respiratory Rate 18 Blood Pressure 121/67 123/70 Pulse Oximetry 100 97 97 12/01/20 20:01 12/01/20 20:30 12/01/20 21:05 Temperature Pulse Rate 70 65 73 Respiratory Rate Blood Pressure 107/65 106/64 Pulse Oximetry 96 95 97 12/01/20 21:07 12/01/20 21:30 12/01/20 22:00 Temperature Pulse Rate 72 80 79 Respiratory Rate Blood Pressure 122/59 L 117/64 Pulse Oximetry 96 100 96 12/01/20 22:01 Temperature Pulse Rate Respiratory Rate Blood Pressure 112/55 L Pulse Oximetry MDM - Nausea/Vomiting/Diarrhea Lab Data Result diagrams: 12/01/20 20:25 12/01/20 20:25 Labs: Lab Results 12/01/20 12/01/20 12/01/20 Range/Units 20:25 20:25 20:25 WBC 7.3 (4.5-11.0) X10^3/uL RBC 4.65 (4.0-5.2) X10^6/uL Hgb 14.0 (12.0-16.0) g/dL Hct 40.9 (36-46) % MCV 87.9 (80-100) fL MCH 30.0 (26-34) PG MCHC 34.2 (30-36) % RDW 12.7 (11.6-14.8) % Plt Count 184 (150-400) X10^3/uL Neut % (Auto) 70.1 (50-75) % Lymph % (Auto) 21.0 L (25-40) % [place] % (Auto) 6.6 (3-14) % Eos % (Auto) 1.8 L (2-4) % Baso % (Auto) 0.5 (0-2) % Neut # (Auto) 5100 (8606-7912) /uL Lymph # (Auto) 1500 (7790-0171) /uL [place] # (Auto) 500 (0-900) /uL Eos # (Auto) 100 (0-450) /uL Baso # (Auto) 0 (0-100) /uL Sodium 139 (137-145) mmol/L Potassium 3.8 (3.4-5.1) mmol/L Chloride 106 (98-107) mmol/L Carbon Dioxide 21 L (22-32) mmol/L BUN 11 (7-17) mg/dL Creatinine 0.67 (0.52-1.04) mg/dL Estimated GFR > 60.0 (>60) mL/min BUN/Creatinine Ratio 16.4 (6-22) Glucose 77 (70-100) mg/dL Calcium 9.5 (8.4-10.2) mg/dL Total Bilirubin 0.6 (0.2-1.3) mg/dL AST 19 (14-36) IU/L ALT 15 (<35) IU/L Alkaline Phosphatase 81 (38-126) U/L Total Protein 8.1 (6.3-8.2) g/dL Albumin 4.7 (3.5-5.0) g/dL Globulin 3.4 (1.7-4.1) g/dL Albumin/Globulin Ratio 1.4 (1.0-2.8) SARS-CoV-2 (PCR) Negative (Negative) Point of Care Testing Test Results Negative Urine Dip Bedside Urine Glucose Negative Bedside Urine Bilirubin - Negative Bedside Urine Ketone +++ 80 Urine Specific [place] 1.025 Bedside Urine Occult Blood +/- Bedside Urine pH 6.0 Bedside Urine Protein - Negative Bedside Urine Urobilinogen - Negative Bedside Urine Nitrite - Negative Bedside Urine Leukocytes - Negative Esterase MDM Narrative Medical decision making narrative: 25-year-old female with repeat visit for right eye pain and headache. Neurologic exam is very reassuring. Increased pressure and vision change in right eye raise the suspicion of acute angle closure glaucoma, however there is no tearing, redness or pupil defect. Other d iagnoses such as uveitis, atypical migraine, MS and other are considered. After consultation with Ophthalmology we agree on multiple topicals for the treatment of glaucoma. Re-evaluation demonstrates a complete resolution of her symptoms and significant improvement in visual acuity and intra-ocular pressures. Regarding her abdominal exam and nausea labs are very reassuring psoas physical exam. X-ray shows no obstructive process. She had tremendous improvement symptoms with above-stated therapies. She has been instructed to follow-up with ophthalmology in the morning, other return precautions given and questions answered to her apparent satisfaction Discharge Plan Departure Patient Disposition: Home Clinical Impression: Acute eye pain Glaucoma Qualifiers: Glaucoma type: unspecified Laterality: right Qualified Code(s): H40.9 - Unspecified glaucoma Instructions: Open-angle Glaucoma, DI for Eye Pain Activity Restrictions/Additional Instructions: *You have been diagnosed with [right eye pain, vision changes and high pressures are suggestive of glaucoma. Thankfully, your symptoms tremendously improved after the medications given. *What to do: *Please continue to take your regular medications as directed. [ ] New medication prescriptions sent to your pharmacy: [ ] [ ] New medication written as a paper prescription [x ] No new medications given * as we discussed please call Dr. Hoskins or Dr. Torres at [facility] this morning. They typically will see patients from the Emergency Department the following morning. Please let them know that you were seen in the emergency department and we asked the be seen in follow-up today. If you have any issues being seen at their clinic, the powder room attendant at [facility] said that they would be happy to see you down at their facility. You may contact our emergency department for assistance also. Prescriptions: No Action clindamycin phosphate 1 % gel 1 applic topical DAILY Qty: 60 RF: 0 oxcarbazepine [Trileptal] 600 mg tablet 600 mg PO BID RF: 0 sertraline [Zoloft] 100 mg tablet 100 mg PO DAILY RF: 0 clonazepam 0.5 mg tablet 0.5 mg PO DAILY RF: 0 quetiapine [Seroquel] 100 mg tablet 100 mg PO BEDTIME RF: 0 triamcinolone acetonide 0.025 % cream 1 applic topical BID Qty: 15 RF: 1 prednisone 10 mg tablet 10 mg PO DAILY Qty: 30 RF: 0 Referrals: Sp Hoskins MD [Physician] - Dulce Rose ARNP [Primary Care Provider] -
[2020-12-01 20:31] LABS: Add Manual Diff / Slide Review NO; Basophils Absolute Auto 0 /uL (0-100); Basophils Percent Auto 0.5 % (0-2); Eosinophils Absolute Auto 100 /uL (0-450); Eosinophils Percent Auto 1.8 % (2-4); Hematocrit 40.9 % (36-46); Lymphocytes Absolute Auto 1500 /uL (1100-4500); Mean Corpuscular HGB Conc 34.2 % (30-36); Mean Corpuscular Volume 87.9 fL (80-100); Monocytes Absolute Auto 500 /uL (0-900); Monocytes Percent Auto 6.6 % (3-14); Neutrophils Absolute Auto 5100 /uL (1500-7000); Neutrophils Percent Auto 70.1 % (50-75); Platelet Count 184 X10^3/uL (150-400); Red Blood Cell Count 4.65 X10^6/uL (4.0-5.2); Red Cell Distribution Width 12.7 % (11.6-14.8); White Blood Cell Count 7.3 X10^3/uL (4.5-11.0)
[2020-12-01] MEDS: PANTOPRAZOLE 40 MG VIAL IV (20:36)
[2020-12-01] MEDS: SODIUM CHLORIDE 0.9% 1,000 ML 1000 ML IV (20:36)
[2020-12-01] MEDS: ONDANSETRON 4 MG/2 ML INJ IV (20:36)
--- NOTE | 2020-12-01 20:39 | PC.NURSE ---
Pt reports having nausea for past two weeks. states starting out originally just throwing up in the morning but now unable to keep anything down. Pt states concern because she can't take her epileptic meds. She is concerned about having a seizure.
--- NOTE | 2020-12-01 20:49 | DI.RAD.S_ITS ---
PROCEDURE: XR ACUTE ABDOMEN SERIES INDICATIONS: N/V/D TECHNIQUE: One view chest and two views of the abdomen were acquired. COMPARISON: None. FINDINGS: Surgical changes and devices: None. Chest: Lungs are clear. Heart size is normal. No pleural effusions. No pneumoperitoneum. Abdomen: Bowel gas pattern is normal. No suspicious calcifications. Visualized solid organ contours appear normal. Moderate stool. Bones: No suspicious bony lesions. IMPRESSION: No specific evidence of bowel obstruction seen at this time although if the patient's symptoms do not improve, continued surveillance with abdominal series radiographs could be performed. Dictated by: Dwight Duong M.D. on 12/01/2020 at 22:08 Approved by: Dwight Duong M.D. on 12/01/2020 at 22:09
[2020-12-01 20:56] LABS: Alanine Aminotransferase 15 IU/L (<35); Albumin 4.7 g/dL (3.5-5.0); Albumin Globulin Ratio 1.4 (1.0-2.8); Alkaline Phosphatase 81 U/L (38-126); Aspartate Aminotransferase 19 IU/L (14-36); BUN Creatinine Ratio 16.4 (6-22); Bilirubin Total 0.6 mg/dL (0.2-1.3); Blood Urea Nitrogen 11 mg/dL (7-17); Calcium 9.5 mg/dL (8.4-10.2); Carbon Dioxide 21 mmol/L (22-32); Chloride 106 mmol/L (98-107); Estimated Glomerular Filt Rate > 60.0 mL/min (>60); Globulin 3.4 g/dL (1.7-4.1); Glucose 77 mg/dL (70-100); HEMOLYSIS < 15 (0-50); Potassium 3.8 mmol/L (3.4-5.1); Sodium 139 mmol/L (137-145); Total Protein 8.1 g/dL (6.3-8.2)
[2020-12-01 21:06] LABS: COVID19 -Nasal RAPID Negative (Negative)
[2020-12-01] MEDS: PROPARACAINE 0.5% OPHTH SOL 1 DROPS EYE-RIGHT (21:52)
[2020-12-01] MEDS: KETOROLAC 30 MG/ML VIAL 15 MG IV (21:52)
[2020-12-01] MEDS: FLUORESCEIN 1 MG STRIP EYE-RIGHT (23:00)
--- NOTE | 2020-12-01 23:40 | PC.NURSE ---
At 2240 Dr Gutierrez requested to consult with [facility] Ophthalmology: Called Cristina at transfer center and faxed face sheet and pushed images. Britany johnson RN at [facility] called back to consult with Dr Gutierrez @[phone] At [phone] [facility] transfer canter connected Dr gutierrez with their heel reducer educational resource coordinator.
[2020-12-02] VITALS (9 sets, daily range): BP systolic 109–123; BP diastolic 55–70; PULSE 58–78; O2SAT 96–99
[2020-12-02] MEDS: BRIMONIDINE 0.2% OPHTH 5 ML 1 DROPS EYE-RIGHT (00:03)
[2020-12-02] MEDS: TIMOLOL 0.25% OPHTH 1 DROPS EYE-RIGHT (00:08)
[2020-12-02] MEDS: DORZOLAMIDE 2% OPHTH 10 ML 1 DROPS EYE-RIGHT (00:38)
[2020-12-02] MEDS: LATANOPROST 0.005% OPHTH 2.5 ML 1 DROPS EYE-RIGHT (00:49)
[2020-12-02] MEDS: ONDANSETRON 4 MG ODT PREPACK 1 BOTTLE MISC (04:09)
== END 2020-12-02 04:15 | disposition home or self-care (01) ==
PROVIDERS: Emergency Provider Emergency Medicine; PCP Registered Nurse
DX: H57.11 Ocular pain, right eye (principal); H40.9 Unspecified glaucoma; R11.2 Nausea with vomiting, unspecified; R10.84 Generalized abdominal pain; Z20.822 Contact with and (suspected) exposure to COVID-19
CPT/HCPCS: 36415; 74022; 80053; 81003; 81025; 85025; 87635; 96361; 96374; 96375; 99284; C9803; C9113; J1885; J2405

== ENCOUNTER 2020-12-13 10:47 | Emergency (ER) | payer OTHER, MEDICAID, SELFPAY ==
[2020-12-13 11:08] VITALS: BP 135/87; PULSE 69; RESP 19; TEMP 37.1; O2SAT 100; BMI 37.0
[2020-12-13] MEDS: PROPARACAINE 0.5% OPHTH SOL 1 DROPS EYE-BOTH (11:41)
--- NOTE | 2020-12-13 13:21 | ED_ITS ---
HPI - Eye Problem General Chief complaint: Eye Problems Stated complaint: Pain in eye- early onset glaucoma Time Seen by Provider: 12/13/20 10:57 Source: patient Mode of arrival: Family Vehicle Limitations: no limitations History of Present Illness HPI Narrative: 25-year-old female nonsmoker with history of migraines and seizures presents with a chief complaint of upwards of 24 hours of a mild aching type pain in her right eye in the absence of any injury, fever or chills. She does not wear any corrective lenses or contacts. She states that she does have some subtle blurring of her vision. She was seen and evaluated recently and thought to have acute angle closure glaucoma with pressures in the upper 30s that were improved rapidly with typical therapies. She had been evaluated by Ophthalmology the following day and plan is to re-evaluate her in 2 weeks and allow time for medications to wear off. She denies any headache or other neurologic symptoms. She is not dizzy nor weak or lightheaded. Related Data Home Medications Medication Instructions Recorded Confirmed clonazepam 0.5 mg tablet 0.5 mg PO DAILY 11/15/19 09/22/20 oxcarbazepine 600 mg tablet 600 mg PO BID 11/15/19 09/22/20 (Trileptal) doxazosin 1 mg tablet 1 mg PO DAILY 12/03/20 12/03/20 lithium carbonate 300 mg capsule 300 mg PO BEDTIME 12/03/20 12/03/20 ramelteon 8 mg tablet 8 mg PO BEDTIME 12/03/20 12/03/20 Previous Rx's Medication Instructions Recorded clindamycin phosphate 1 % topical 1 applic TOPICAL DAILY #60 g 01/15/20 gel triamcinolone acetonide 0.025 % 1 applic TOPICAL BID #15 g 09/22/20 topical cream pneumoc 13-isidro conj-dip cr(PF) 0.5 0.5 ml IM ONCE #0.5 ml 12/09/20 mL IM syringe (Prevnar 13 (PF)) pneumococcal 23-isidro ps vaccine 25 0.5 ml IM ONCE #0.5 ml 12/09/20 mcg/0.5 mL injection solution (Pneumovax-23) varicella-zoster glycoE vacc-[id number] 0.5 ml IM ONCE #1 ea 12/09/20 adj(PF) 50 mcg/0.5 mL IM susp, kit (Shingrix (PF)) prednisolone acetate 1 % eye 2 drp EYE-RIGHT Q6H #15 ml 12/13/20 drops,suspension Allergies Allergy/AdvReac Type Severity Reaction Status Date / Time dapsone Allergy Verified 12/13/20 11:13 erythromycin base Allergy Verified 12/13/20 11:13 Review of Systems Review of Systems Narrative: GENERAL: Denies chills, fatigue, malaise, fever, sweats. HEENT: See HPI RESPIRATORY: Denies dyspnea, cough, wheezing, hemoptysis, sputum. CARDIOVASCULAR: Denies chest pain, palpitations, orthopnea, edema, GASTROINTESTINAL: Denies nausea, vomiting, abdominal pain, diarrhea, constipation, melena. : Denies dysuria, frequency, incontinence, hematuria, urinary retention. MUSCULOSKELETAL: denies weakness, joint pain, or bony pain SKIN: Denies rash, skin lesions, or other NEUROLOGIC: Denies weakness, headache, numbness, change in speech, confusion, seizures, incoordination. PSYCHIATRIC: No concerning psychosocial issues. 12 point review of systems is negative except for those stated above Patient History Medical History Behcet's disease Chicken pox Chronic joint pain Depression Dermatitis Memory impairment Migraines Seizures Surgical History Anesthesia History of bone marrow biopsy No pertinent past surgical history [place] teeth removed Family History Father Mental health problem Mother Mental health problem Brother Mental health problem Sister Mental health problem Grandmother Mental health problem Aneurysm Grandfather Hypertension Hyperlipidemia Mental health problem Grandmother Hypertension Hyperlipidemia Psoriatic arthritis Social History Smoking Status: Never smoker Smoking Status: Never smoker alcohol intake frequency: holidays/special occasions only Substance Use Type: marijuana Exam Narrative Exam Narrative: GEN: AOx3 and in mild distress EYES: Pupils are equal, round, and reactive to light and accommodation. Extraoccular muscles are intact bilaterally. There is no subconjunctival hemorrhage or exudate. No fluorescein uptake is noted. Pressures are 21 and 22 mmHg respectively CHEST: Lungs are clear to auscultation bilaterally and free of wheezes, rales, or rhonchi. Heart rate is regular rhythm, there are no murmurs, clicks, rubs, or gallops. There is no chest wall tenderness. ABD: Abdomen is soft and nontender. There is no guarding or rebound. Bowel sounds are normal in all 4 quadrants. There is no mass or organomegaly. EXT: Full painless ROM of all extremities with no loss of sensation or strength. SKIN: Warm, pink, and dry. No erythema or rash Initial Vital Signs Initial Vital Signs: Vital Signs Temperature 98.8 F 12/13/20 11:08 Pulse Rate 69 12/13/20 11:08 Respiratory Rate 19 12/13/20 11:08 Blood Pressure 135/87 12/13/20 11:08 Pulse Oximetry 100 12/13/20 11:08 Course Orders Ordered: Discontinued Medications Proparacaine HCl (Proparacaine 0.5% Ophth Jessica) 1 drops EYE-BOTH NOW ONE Stop: 12/13/20 10:58 Last Admin: 12/13/20 11:41 Dose: 1 drop Documented by: ANAND Vital Signs Vital signs: Vital Signs - 8 hr 12/13/20 11:08 Temperature 98.8 F Pulse Rate 69 Respiratory Rate 19 Blood Pressure 135/87 Pulse Oximetry 100 MDM - Eye Problem MDM Narrative Medical decision making narrative: Patient has reassuring physical exam and history. No evidence of acute angle closure glaucoma today. Given her history of uveitis and presentation there is questionably an element of this in her diagnosis. Atypical headache and migraine equivalent are also considered. Patient given return precautions and questions answered to her apparent satisfaction Discharge Plan Departure Patient Disposition: Home Clinical Impression: Acute eye pain, Uveitis of right eye Instructions: Uveitis (Alternative Therapy) Activity Restrictions/Additional Instructions: *You have been diagnosed with [eye pain and blurring of vision, likely due to uveitis. Your pressures today are very reassuring at 23 mmHg *What to do: *Please continue to take your regular medications as directed. [x ] New medication prescriptions sent to your pharmacy: [[facility] ] [ ] New medication written as a paper prescription [ ] No new medications given * please contact your [facility] industrial on Tuesday morning and let them know that you were seen again and evaluated in the emergency department. You could discussed with them at that time if they would like you to consider continuing the steroid drop prescribed today *Return to Emergency Department if you should have any new, worsening or concerning symptoms, such as [fever greater than 101 F, shaking chills, worsening pain, persistent vomiting or other bothersome symptoms] Prescriptions: New prednisolone acetate 1 % drops,suspension 2 drp EYE-RIGHT Q6H Qty: 15 RF: 0 No Action Shingrix (PF) 50 mcg/0.5 mL suspension for reconstitution 0.5 ml IM ONCE Qty: 1 RF: 1 Prevnar 13 (PF) 0.5 mL syringe 0.5 ml IM ONCE Qty: 0.5 RF: 0 Pneumovax-23 25 mcg/0.5 mL solution 0.5 ml IM ONCE Qty: 0.5 RF: 0 clindamycin phosphate 1 % gel 1 applic topical DAILY Qty: 60 RF: 0 oxcarbazepine [Trileptal] 600 mg tablet 600 mg PO BID RF: 0 clonazepam 0.5 mg tablet 0.5 mg PO DAILY RF: 0 triamcinolone acetonide 0.025 % cream 1 applic topical BID Qty: 15 RF: 1 lithium carbonate 300 mg capsule 300 mg PO BEDTIME RF: 0 ramelteon 8 mg tablet 8 mg PO BEDTIME RF: 0 doxazosin 1 mg tablet 1 mg PO DAILY RF: 0 Referrals: Dulce Rose ARNP [Primary Care Provider] -
== END 2020-12-13 13:30 | disposition home or self-care (01) ==
PROVIDERS: Emergency Provider Emergency Medicine; PCP Registered Nurse
DX: H20.9 Unspecified iridocyclitis (principal); H57.11 Ocular pain, right eye
CPT/HCPCS: 99282

== ENCOUNTER 2024-05-19 11:32 | Emergency (ER) | payer OTHER, SELFPAY ==
[2024-05-19] VITALS (35 sets, daily range): BP systolic 87–116; BP diastolic 49–83; PULSE 54–91; RESP 11–25; TEMP 36.6; O2SAT 98–100; BMI 25.2
--- NOTE | 2024-05-19 11:57 | DI.CT.S_ITS ---
PROCEDURE: CT HEAD/BRAIN WO CON INDICATIONS: post LP headache. LP was reportedly negative. TECHNIQUE: Noncontrast 4.5 mm thick angled axial sections acquired from the foramen magnum to the vertex, with coronal and sagittal reformats. For radiation dose reduction, the following was used: automated exposure control, adjustment of mA and/or kV according to patient size. COMPARISON: [facility], MR, MR BRAIN WITH/WITHOUT CONTRAST, 05/17/2024, 12:51. [facility], CT, CT HEAD/BRAIN WO CON, 11/27/2020, 12:53. FINDINGS: Image quality: Diagnostic. CSF spaces: Basal cisterns are patent. No extra-axial fluid collections. Ventricles are normal in size and shape. Brain: No midline shift. No intracranial masses or hemorrhage. Aaron-white matter interface is normal. Skull and face: Calvarium and visualized facial bones are intact, without suspicious lesions. Sinuses: Visualized sinuses and mastoids are clear. IMPRESSION: Unremarkable noncontrast head CT, without a cause of headache identified. No acute intracranial hemorrhage is seen. Dictated by: Jericho Drake M.D. on 05/19/2024 at 11:34 Approved by: Jericho Drake M.D. on 05/19/2024 at 11:35
--- NOTE | 2024-05-19 12:00 | ED_ITS ---
HPI - Headache <Ira Todd - Last Filed: 05/20/24 07:49> General Chief Complaint: Headache Stated Complaint: ART, N/V Time Seen by Provider: 05/19/24 11:40 Source: patient (Visit from [facility] with patients LP results reviewed. ), family, RN notes reviewed and old records reviewed Mode of arrival: EMS Limitations: no limitations History of Present Illness HPI Narrative: 28-year-old female with history of amnesia dating back to 2019 with short term memory loss, Davey Danlos, Behcet's, seizure disorder, localization-related epilepsy, mastocytosis enterocolitis, systemic mastocytosis, dysautonomia, pots, seronegative rheumatoid arthritis, bilateral ocular hypertension/glaucoma, cognitive impairment, ADHD, autistic disorder, hypothyroidism, Raynaud's presents with complaint of headache nausea vomiting status post lumbar puncture proximally 24 hours ago. 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 She states this was negative she was discharged home since then has had a persistent headache worse when she was upright as well as nausea vomiting and light sensitivity. No fevers that she was aware of. No new chest pain or shortness of breath. She has had nausea and vomiting. She denies any diarrhea or constipation. Denies any abdominal back or flank pain. No dysuria, urgency or frequency. No incontinence. No new numbness tingling or weakness. She was myoclonic jerks intermittently but this is normal for her. They are unaware of any recent seizure activity. They note she was had difficulty keeping down her home medications including her antiseizure meds. She was allergies to erythromycin, dapsone and latex. Noted she takes Gleevec 4 some sure immune disease. Patient has had a hysterectomy. Home medications include hydroxyzine PRN, acetazolamide, indomethacin, levothyroxine, trazodone, budesonide, Gleevec, Rozerem, fluoxetine, hydromorphone, Zofran, lithium, doxazosin, gabapentin, clonazepam, oxcarbazepine, Remicade. Related Data Home Medications Medication Instructions Recorded Confirmed clonazepam 0.5 mg tablet 0.5 mg PO DAILY 11/15/19 09/22/20 oxcarbazepine 600 mg tablet 600 mg PO BID 11/15/19 09/22/20 (Trileptal) doxazosin 1 mg tablet 1 mg PO DAILY 12/03/20 12/03/20 lithium carbonate 300 mg capsule 300 mg PO BEDTIME 12/03/20 12/03/20 ramelteon 8 mg tablet 8 mg PO BEDTIME 12/03/20 12/03/20 Previous Rx's Medication Instructions Recorded clindamycin phosphate 1 % topical 1 applic topical DAILY 01/15/20 gel hidradenitis supperativa #60 grams triamcinolone acetonide 0.025 % 1 applic topical BID dermatosis 09/22/20 topical cream #15 grams pneumoc 13-isidro conj-dip cr(PF) 0.5 0.5 ml IM ONCE #0.5 mL 12/09/20 mL IM syringe (Prevnar 13 (PF)) pneumococcal 23-isidro ps vaccine 25 0.5 ml IM ONCE #0.5 mL 12/09/20 mcg/0.5 mL injection solution (Pneumovax-23) varicella-zoster glycoE vacc-[id number] 0.5 ml IM ONCE #1 ea 12/09/20 adj(PF) 50 mcg/0.5 mL IM susp, kit (Shingrix (PF)) prednisolone acetate 1 % eye 2 drp EYE-RIGHT Q6H #15 mL 12/13/20 drops,suspension Allergies Allergy/AdvReac Type Severity Reaction Status Date / Time dapsone Allergy Verified 05/19/24 11:32 erythromycin base Allergy Verified 05/19/24 11:32 Review of Systems <Ira Todd DO - Last Filed: 05/20/24 07:49> Review of Systems ROS Unobtainable: All systems reviewed & are unremarkable except as noted in HPI and below Patient History <Ira Todd DO - Last Filed: 05/20/24 07:49> Medical History Dermatitis Memory impairment Depression Migraines Chicken pox Behcet's disease Seizures Chronic joint pain Surgical History Anesthesia History of bone marrow biopsy Calvin teeth removed No pertinent past surgical history Family History Father Mental health problem Mother Mental health problem Brother Mental health problem Sister Mental health problem Grandmother Mental health problem Aneurysm Grandfather Hypertension Hyperlipidemia Mental health problem Grandmother Hypertension Hyperlipidemia Psoriatic arthritis Social History Smoking Status: Never smoker Smoking Status: Never smoker alcohol intake frequency: holidays/special occasions only Exam <Ira Todd DO - Last Filed: 05/20/24 07:49> Narrative Exam Narrative: GEN: well nourished female, alert and oriented x 3, patient appears to be in mild distress. HEENT: Atraumatic, pupils are equal round reactive to light, no nystagmus, extraocular movements are intact, nares are clear, TMs are clear with no fluid, there is no conjunctival pallor. Throat is clear without any exudates, erythema, tonsillar enlargement or uvular deviation HEART: Regular rate and rhythm without murmur, clicks, rubs. Pulses are equal in upper and lower extremities LUNGS:Lungs clear to auscultation, no wheezes, rales, crackles, chest moves symmetrically ABD:bowel sounds normal, soft, non-tender, no guarding, rebound, rigidity, no masses noted, no hepatosplenomegaly :No CVA tenderness BACK: No cervical, thoracic or lumbar vertebral point tenderness. Patient has normal range of motion. Patient has punctate ecchymosis consistent with a puncture gardenia from lumbar puncture at the L3-L5 range no erythema no warmth nontender over the site. MSCL: Non-tender, no muscle atrophy, muscles strength 5/5 upper and lower extremities, manufacturing finance manager equal bilaterally, full range of motion NEURO:CN 2-12 intact, sensation normal, reflexes 2/4 upper and lower extremities Initial Vital Signs Initial Vital Signs: Vital Signs Pulse Rate 69 05/19/24 11:38 Pulse Oximetry 100 05/19/24 11:38 <Nicci Gaming MD - Last Filed: 05/20/24 03:03> Initial Vital Signs Initial Vital Signs: Vital Signs Pulse Rate 69 05/19/24 11:38 Pulse Oximetry 100 05/19/24 11:38 Course <Ira C Mank, DO - Last Filed: 05/20/24 07:49> Orders Ordered: Discontinued Medications Fentanyl (Fentanyl 100 Mcg/2 Ml Inj) 50 mcg IV NOW ONE Stop: 05/19/24 15:10 Last Admin: 05/19/24 15:18 Dose: 50 mcg Documented By: JESSIE Sodium Chloride (Normal Saline 0.9%) 1,000 mls @ 1,000 mls/hr IV BOLUS ONE Stop: 05/19/24 12:56 Last Infusion: 05/19/24 13:35 Dose: Infused Documented By: Admin: 05/19/24 12:30 Dose: 1,000 mls/hr Documented By: TONY Sodium Chloride (Normal Saline 0.9%) 1,000 mls @ 1,000 mls/hr IV BOLUS ONE Stop: 05/19/24 16:10 Last Infusion: 05/19/24 18:13 Dose: Infused Documented By: Admin: 05/19/24 15:19 Dose: 1,000 mls/hr Documented By: JESSIE Ketorolac Tromethamine (Ketorolac 30 Mg/Ml Vial) 15 mg IV NOW ONE Stop: 05/19/24 11:58 Last Admin: 05/19/24 12:30 Dose: 15 mg Documented By: TONY Lorazepam (Lorazepam 2 Mg/Ml Inj) 0.5 mg IV NOW ONE Stop: 05/19/24 16:32 Last Admin: 05/19/24 16:34 Dose: 0.5 mg Documented By: JESSIE Metoclopramide HCl (Metoclopramide 10 Mg/2 Ml Inj) 10 mg IV NOW ONE Stop: 05/19/24 11:58 Last Admin: 05/19/24 12:30 Dose: 10 mg Documented By: TONY Ondansetron HCl (Ondansetron 4 Mg/2 Ml Inj) 4 mg IV NOW ONE Stop: 05/19/24 15:10 Last Admin: 05/19/24 15:18 Dose: 4 mg Documented By: JESSIE Vital Signs Vital signs: Vital Signs - 8 hr 05/19/24 19:15 05/19/24 19:15 05/19/24 19:30 Pulse Rate 61 54 L Respiratory Rate 23 12 Blood Pressure 103/59 L Pulse Oximetry 100 100 05/19/24 19:30 05/19/24 20:02 05/19/24 20:02 Pulse Rate 88 Respiratory Rate Blood Pressure 103/57 L 110/53 L Pulse Oximetry 98 <Nicci Gaming MD - Last Filed: 05/20/24 03:03> Orders Ordered: Discontinued Medications Fentanyl (Fentanyl 100 Mcg/2 Ml Inj) 50 mcg IV NOW ONE Stop: 05/19/24 15:10 Last Admin: 05/19/24 15:18 Dose: 50 mcg Documented By: JESSIE Sodium Chloride (Normal Saline 0.9%) 1,000 mls @ 1,000 mls/hr IV BOLUS ONE Stop: 05/19/24 12:56 Last Infusion: 05/19/24 13:35 Dose: Infused Documented By: Admin: 05/19/24 12:30 Dose: 1,000 mls/hr Documented By: TONY Sodium Chloride (Normal Saline 0.9%) 1,000 mls @ 1,000 mls/hr IV BOLUS ONE Stop: 05/19/24 16:10 Last Infusion: 05/19/24 18:13 Dose: Infused Documented By: Admin: 05/19/24 15:19 Dose: 1,000 mls/hr Documented By: JESSIE Ketorolac Tromethamine (Ketorolac 30 Mg/Ml Vial) 15 mg IV NOW ONE Stop: 05/19/24 11:58 Last Admin: 05/19/24 12:30 Dose: 15 mg Documented By: TONY Lorazepam (Lorazepam 2 Mg/Ml Inj) 0.5 mg IV NOW ONE Stop: 05/19/24 16:32 Last Admin: 05/19/24 16:34 Dose: 0.5 mg Documented By: JESSIE Metoclopramide HCl (Metoclopramide 10 Mg/2 Ml Inj) 10 mg IV NOW ONE Stop: 05/19/24 11:58 Last Admin: 05/19/24 12:30 Dose: 10 mg Documented By: TONY Ondansetron HCl (Ondansetron 4 Mg/2 Ml Inj) 4 mg IV NOW ONE Stop: 05/19/24 15:10 Last Admin: 05/19/24 15:18 Dose: 4 mg Documented By: JESSIE Vital Signs Vital signs: Vital Signs - 8 hr 05/19/24 19:15 05/19/24 19:15 05/19/24 19:30 Pulse Rate 61 54 L Respiratory Rate 23 12 Blood Pressure 103/59 L Pulse Oximetry 100 100 05/19/24 19:30 05/19/24 20:02 05/19/24 20:02 Pulse Rate 88 Respiratory Rate Blood Pressure 103/57 L 110/53 L Pulse Oximetry 98 MDM - Headache <Ira Todd, DO - Last Filed: 05/20/24 07:49> Lab Data 05/19/24 13:15 05/19/24 13:15 Labs: Lab Results 05/19/24 05/19/24 Range/Units 13:15 13:40 WBC 4.5 (4.5-11.0) X10^3/uL RBC 3.35 L (4.0-5.2) X10^6/uL Hgb 10.5 L (12.0-16.0) g/dL Hct 31.4 L (36-46) % MCV 93.6 (80-100) fL MCH 31.3 (26-34) PG MCHC 33.5 (30-36) % RDW 13.6 (11.6-14.8) % Plt Count 151 (150-400) X10^3/uL Neut % (Auto) 83.0 H (50-75) % Lymph % (Auto) 13.3 L (25-40) % [place] % (Auto) 3.0 (3-14) % Eos % (Auto) 0.2 L (2-4) % Baso % (Auto) 0.5 (0-2) % Neut # (Auto) 3700 (5103-9536) /uL Lymph # (Auto) 600 L (7359-4268) /uL [place] # (Auto) 100 (0-900) /uL Eos # (Auto) 0 (0-450) /uL Baso # (Auto) 0 (0-100) /uL Sodium 137 (137-145) mmol/L Potassium 4.0 (3.4-5.1) mmol/L Chloride 113 H (98-107) mmol/L Carbon Dioxide 17 L (22-32) mmol/L BUN 13 (7-17) mg/dL Creatinine 0.69 (0.52-1.04) mg/dL Estimated GFR > 60 (>60) mL/min BUN/Creatinine Ratio 18.8 (6-22) Glucose 103 H (70-100) mg/dL Lactate 1.5 (0.7-2.1) mmol/L Calcium 8.2 L (8.4-10.2) mg/dL Total Bilirubin 0.5 (0.2-1.3) mg/dL AST 22 (14-36) IU/L ALT 21 (<35) IU/L Alkaline Phosphatase 53 (38-126) U/L Total Protein 6.5 (6.3-8.2) g/dL Albumin 3.8 (3.5-5.0) g/dL Globulin 2.7 (1.7-4.1) g/dL Albumin/Globulin Ratio 1.4 (1.0-2.8) Procalcitonin 0.049 (<0.5) ng/mL Urine RBC 0-1/hpf (0-5/HPF) Urine WBC 1-5/hpf (0-5/HPF) Ur Squamous Epith Cells 1-5 /hpf (0-5/HPF) Urine Bacteria Many (>30) H (None) Ur Culture Indicated? Cult not indicated Vol Urine Centrifuged 10ml (spun) Urine Dip Bedside Urine Glucose Negative Bedside Urine Bilirubin + 1 Bedside Urine Ketone +++ 80 Urine Specific [place] 1.015 Bedside Urine Occult Blood - Negative Bedside Urine pH 6.5 Bedside Urine Protein + 30 Bedside Urine Urobilinogen +/- 1mg Bedside Urine Nitrite - Negative Bedside Urine Leukocytes - Negative Esterase MDM Narrative Medical decision making narrative: 28-year-old female with complex medical history reports she was sent to [facility] and had lumbar puncture to evaluate for CMV encephalitis she states it was negative but has since had headaches which were not actually present prior to the lumbar puncture as well as nausea or vomiting. She notes it seems to be more when she was upright. Blood pressure is low but she states that she does run low. She was not had any other systemic infectious symptoms described in the last 24 hours. She notes that she had hallucinations which led to the lumbar puncture but has not had any she or her family at bedside are aware. Labs labs show white count of 4.5 hemoglobin of 10 platelets of 151, chemistries show chloride 113 CO2 of 17 otherwise normal electrolytes and creatinine glucose of 103 calcium is [address]2. Head CT is negative for acute change Patient received fluids, Toradol, antiemetics Discussed given caffeine for potential post LP headache but we do not have available in our pharmacy. Patient's headache is improved about detention but she was still having nausea and vomiting fairly frequently even with antiemetics. She was given additional dose of pain medication antiemetic. Reviewed findings with the patient. Spoke with anesthesia, Dr. Price agreeable for blood patch suspect post LP headache. Patient's workup from [facility] including her results from her lumbar puncture, labs reviewed LP was reassuring they had also report the patient had an MR as outpatient earlier that day which was negative. Patient case was also reviewed with Infectious Disease who felt encephalitis was less likely on differential. Dr. Price patient here in the department discussed risks versus benefits and blood patch was performed. Patient to lay flat x 1 hour. She noted feeling improved immediately afterwards. Signed out to Dr. Gaming while awaiting. 730pm Dr Gaming Care assumed, patient is independently evaluated, chart is reviewed It has now been almost an hour and a half since the blood patch the patient feels significantly better. She has had an entire glass of water, been up to the bathroom feels comfortable walking, headache has not returned and I believe is safe for discharge <Nicci Gaming MD - Last Filed: 05/20/24 03:03> Lab Data Labs: Lab Results 05/19/24 05/19/24 Range/Units 13:15 13:40 WBC 4.5 (4.5-11.0) X10^3/uL RBC 3.35 L (4.0-5.2) X10^6/uL Hgb 10.5 L (12.0-16.0) g/dL Hct 31.4 L (36-46) % MCV 93.6 (80-100) fL MCH 31.3 (26-34) PG MCHC 33.5 (30-36) % RDW 13.6 (11.6-14.8) % Plt Count 151 (150-400) X10^3/uL Neut % (Auto) 83.0 H (50-75) % Lymph % (Auto) 13.3 L (25-40) % [place] % (Auto) 3.0 (3-14) % Eos % (Auto) 0.2 L (2-4) % Baso % (Auto) 0.5 (0-2) % Neut # (Auto) 3700 (6744-8524) /uL Lymph # (Auto) 600 L (2516-4706) /uL [place] # (Auto) 100 (0-900) /uL Eos # (Auto) 0 (0-450) /uL Baso # (Auto) 0 (0-100) /uL Sodium 137 (137-145) mmol/L Potassium 4.0 (3.4-5.1) mmol/L Chloride 113 H (98-107) mmol/L Carbon Dioxide 17 L (22-32) mmol/L BUN 13 (7-17) mg/dL Creatinine 0.69 (0.52-1.04) mg/dL Estimated GFR > 60 (>60) mL/min BUN/Creatinine Ratio 18.8 (6-22) Glucose 103 H (70-100) mg/dL Lactate 1.5 (0.7-2.1) mmol/L Calcium 8.2 L (8.4-10.2) mg/dL Total Bilirubin 0.5 (0.2-1.3) mg/dL AST 22 (14-36) IU/L ALT 21 (<35) IU/L Alkaline Phosphatase 53 (38-126) U/L Total Protein 6.5 (6.3-8.2) g/dL Albumin 3.8 (3.5-5.0) g/dL Globulin 2.7 (1.7-4.1) g/dL Albumin/Globulin Ratio 1.4 (1.0-2.8) Procalcitonin 0.049 (<0.5) ng/mL Urine RBC 0-1/hpf (0-5/HPF) Urine WBC 1-5/hpf (0-5/HPF) Ur Squamous Epith Cells 1-5 /hpf (0-5/HPF) Urine Bacteria Many (>30) H (None) Ur Culture Indicated? Cult not indicated Vol Urine Centrifuged 10ml (spun) Urine Dip Bedside Urine Glucose Negative Bedside Urine Bilirubin + 1 Bedside Urine Ketone +++ 80 Urine Specific [place] 1.015 Bedside Urine Occult Blood - Negative Bedside Urine pH 6.5 Bedside Urine Protein + 30 Bedside Urine Urobilinogen +/- 1mg Bedside Urine Nitrite - Negative Bedside Urine Leukocytes - Negative Esterase MDM Narrative Medical decision making narrative: 28-year-old female with complex medical history reports she was sent to [facility] and had lumbar puncture to evaluate for CMV encephalitis she states it was negative but has since had headaches which were not actually present prior to the lumbar puncture as well as nausea or vomiting. She notes it seems to be more when she was upright. Blood pressure is low but she states that she does run low. She was not had any other systemic infectious symptoms described in the last 24 hours. She notes that she had hallucinations which led to the lumbar puncture but has not had any she or her family at bedside are aware. Labs labs show white count of 4.5 hemoglobin of 10 platelets of 151, chemistries show chloride 113 CO2 of 17 otherwise normal electrolytes and creatinine glucose of 103 [address] is [address]2. Head CT is negative for acute change Patient received fluids, Toradol, antiemetics Discussed given caffeine for potential post LP headache but we do not have available in our pharmacy. Patient's headache is improved about detention but she was still having nausea and vomiting fairly frequently even with antiemetics. She was given additional dose of pain medication antiemetic. Reviewed findings with the patient. Spoke with anesthesia, Dr. Price agreeable for blood patch suspect post LP headache. Dr. Price patient here in the department discussed risks versus benefits and blood patch was performed. Patient to lay flat x 1 hour. She noted feeling improved immediately afterwards. Signed out to Dr. Gaming while awaiting. 730pm Dr Gaming Care assumed, patient is independently evaluated, chart is reviewed It has now been almost an hour and a half since the blood patch the patient feels significantly better. She has had an entire glass of water, been up to the bathroom feels comfortable walking, headache has not returned and I believe is safe for discharge Discharge Plan Departure Patient Disposition: Home Clinical Impression: Headache following lumbar puncture Activity Restrictions/Additional Instructions: Follow up for re-check. Avoid strenuous activity for 24-48 hours, continue to rest, continue to hydrate. Some individuals fine caffeine can be helpful if you tolerate it well you can consider caffeinated drinks. Avoid alcohol for 24 hours afterwards. Avoid taking basilar some imaging and water for 3 days can remove your bandage in 24 hours. Return to the closest emergency department if you develop severe headaches, fevers, persistent vomiting, lightheadedness or passing out, new numbness tingling or weakness or difficulty with movement or other new or concerning changes. Prescriptions: No Action Shingrix (PF) 50 mcg/0.5 mL suspension for reconstitution 0.5 ml IM ONCE Qty: 1 1RF Prevnar 13 (PF) 0.5 mL syringe 0.5 ml IM ONCE Qty: 0.5 0RF Rx Instructions: as a single dose Pneumovax-23 25 mcg/0.5 mL solution 0.5 ml IM ONCE Qty: 0.5 0RF Rx Instructions: SINGLE DOSE TO BE COMPLETED 8 WEEKS AFTER PCV13 RECEIVED clindamycin phosphate 1 % gel 1 applic topical DAILY Qty: 60 0RF Rx Instructions: Apply to affected area of vulva once daily for 30 days. oxcarbazepine [Trileptal] 600 mg tablet 600 mg PO BID clonazepam 0.5 mg tablet 0.5 mg PO DAILY triamcinolone acetonide 0.025 % cream 1 applic topical BID Qty: 15 1RF lithium carbonate 300 mg capsule 300 mg PO BEDTIME ramelteon 8 mg tablet 8 mg PO BEDTIME doxazosin 1 mg tablet 1 mg PO DAILY prednisolone acetate 1 % drops,suspension 2 drp EYE-RIGHT Q6H Qty: 15 0RF Referrals: Dulce Rose ARNP [Primary Care Provider] - Stand Alone Forms: Patient Portal/API/Survey
[2024-05-19] MEDS: KETOROLAC 30 MG/ML VIAL 15 MG IV (12:30)
[2024-05-19] MEDS: METOCLOPRAMIDE 10 MG/2 ML INJ IV (12:30)
[2024-05-19] MEDS: SODIUM CHLORIDE 0.9% 1,000 ML 1000 ML IV ×2 (12:30→15:19)
--- NOTE | 2024-05-19 12:47 | PC.NURSE ---
1230: BP 90/50, ED physician at bedside, pt states hx of low BP, father at bedside. Pt has complicated hx with multiple admissions.
[2024-05-19 13:37] LABS: Add Manual Diff / Slide Review NO; Basophils Absolute Auto 0 /uL (0-100); Basophils Percent Auto 0.5 % (0-2); Eosinophils Absolute Auto 0 /uL (0-450); Eosinophils Percent Auto 0.2 % (2-4); Hematocrit 31.4 % (36-46); Hemoglobin 10.5 g/dL (12.0-16.0); Lymphocytes Absolute Auto 600 /uL (1100-4500); Lymphocytes Percent Auto 13.3 % (25-40); Mean Corpuscular HGB Conc 33.5 % (30-36); Mean Corpuscular Hemoglobin 31.3 PG (26-34); Mean Corpuscular Volume 93.6 fL (80-100); Monocytes Absolute Auto 100 /uL (0-900); Neutrophils Absolute Auto 3700 /uL (1500-7000); Platelet Count 151 X10^3/uL (150-400); Red Blood Cell Count 3.35 X10^6/uL (4.0-5.2); Red Cell Distribution Width 13.6 % (11.6-14.8); White Blood Cell Count 4.5 X10^3/uL (4.5-11.0)
[2024-05-19 13:52] LABS: Alanine Aminotransferase 21 IU/L (<35); Albumin 3.8 g/dL (3.5-5.0); Albumin Globulin Ratio 1.4 (1.0-2.8); Alkaline Phosphatase 53 U/L (38-126); Aspartate Aminotransferase 22 IU/L (14-36); BUN Creatinine Ratio 18.8 (6-22); Bilirubin Total 0.5 mg/dL (0.2-1.3); Blood Urea Nitrogen 13 mg/dL (7-17); Calcium 8.2 mg/dL (8.4-10.2); Carbon Dioxide 17 mmol/L (22-32); Chloride 113 mmol/L (98-107); Estimated Glomerular Filt Rate > 60 mL/min (>60); Globulin 2.7 g/dL (1.7-4.1); Glucose 103 mg/dL (70-100); HEMOLYSIS 32 (0-50); Sodium 137 mmol/L (137-145); Total Protein 6.5 g/dL (6.3-8.2)
[2024-05-19 13:53] LABS: Lactate (Lactic Acid) 1.5 mmol/L (0.7-2.1)
[2024-05-19 14:02] LABS: Bacteria Urine Many (>30); Culture Indicated Urine Cult Not Indicated; RBC Urine 0-1/HPF (0-5/HPF); Squamous Epithelial Cell Urine 1-5 /HPF (0-5/HPF); Urine Volume 10mL (spun); WBC Urine 1-5/HPF (0-5/HPF)
[2024-05-19 14:09] LABS: Procalcitonin 0.049 ng/mL (<0.5)
[2024-05-19] MEDS: fentaNYL 100 MCG/2 ML INJ 50 MCG IV (15:18)
[2024-05-19] MEDS: ONDANSETRON 4 MG/2 ML INJ IV (15:18)
[2024-05-19] MEDS: LORazepam 2 MG/ML INJ 0.5 MG IV (16:34)
--- NOTE | 2024-05-19 18:09 | P.CONS_ITS ---
History of Present Illness Consult details Date Patient Seen: 05/19/24 Time Patient Seen: 18:09 Chief complaint: ART, N/V Reason for consult: concern for post dural puncture headache Requesting provider: Ira Todd Narrative: 28-year-old female with complex history including seizure disorder/epilepsy, systemic mastocytosis, dysautonomia, pots, seronegative rheumatoid arthritis, presents with complaint of headache with persistent N/V after undergoing lumbar puncture approximately 24 hours ago. ART onset was within hours of returning home from ED for evaluation of CMV(+) lab test with concerns for encephalopathy. CSF studies were negative and she was discharged home. CT head today, and MRI yesterday were both unremarkable per report. ART is described as worse with sitting upright or standing, and some resolution with lying supine. Pt also reports persistent N/V, unable to hold even small sips of water down. Pt denies fever, and denies ART prior to LP. Home medications include hydroxyzine PRN, acetazolamide, indomethacin, levothyroxine, trazodone, budesonide, Gleevec, Rozerem, fluoxetine, hydromorphone, Zofran, lithium, doxazosin, gabapentin, clonazepam, oxcarbazepine, Remicade. Meds Home Medications and Allergies Home Medications Medication Instructions Recorded Confirmed Type clonazepam 0.5 mg tablet 0.5 mg PO DAILY 11/15/19 09/22/20 History oxcarbazepine 600 mg tablet 600 mg PO BID 11/15/19 09/22/20 History (Trileptal) clindamycin phosphate 1 % topical 1 applic topical DAILY 01/15/20 09/22/20 Rx gel hidradenitis supperativa #60 grams triamcinolone acetonide 0.025 % 1 applic topical BID dermatosis 09/22/20 09/22/20 Rx topical cream #15 grams doxazosin 1 mg tablet 1 mg PO DAILY 12/03/20 12/03/20 History lithium carbonate 300 mg capsule 300 mg PO BEDTIME 12/03/20 12/03/20 History ramelteon 8 mg tablet 8 mg PO BEDTIME 12/03/20 12/03/20 History pneumoc 13-isidro conj-dip cr(PF) 0.5 0.5 ml IM ONCE #0.5 mL 12/09/20 Rx mL IM syringe (Prevnar 13 (PF)) pneumococcal 23-isidro ps vaccine 25 0.5 ml IM ONCE #0.5 mL 12/09/20 Rx mcg/0.5 mL injection solution (Pneumovax-23) varicella-zoster glycoE vacc-[id number] 0.5 ml IM ONCE #1 ea 12/09/20 Rx adj(PF) 50 mcg/0.5 mL IM susp, kit (Shingrix (PF)) prednisolone acetate 1 % eye 2 drp EYE-RIGHT Q6H #15 mL 12/13/20 Rx drops,suspension Allergies Allergy/AdvReac Type Severity Reaction Status Date / Time dapsone Allergy Verified 05/19/24 11:32 erythromycin base Allergy Verified 05/19/24 11:32 Review of Systems Neurologic Comments: grossly normal, no focal defecits, alert, cooperative, conversant Exam Vital Signs (past 8 hours): - 05/19/24 11:38 05/19/24 11:46 05/19/24 12:00 Temperature 97.9 F Pulse Rate 69 76 65 Respiratory Rate 14 Blood Pressure 95/52 L Pulse Oximetry 100 100 100 Oxygen Delivery Method Room Air 05/19/24 12:01 05/19/24 12:01 05/19/24 12:03 Temperature Pulse Rate 61 63 Respiratory Rate Blood Pressure 90/50 L Pulse Oximetry 100 100 Oxygen Delivery Method 05/19/24 12:16 05/19/24 12:30 05/19/24 12:30 Temperature Pulse Rate 79 Respiratory Rate 24 Blood Pressure 95/53 L 109/56 L Pulse Oximetry 100 Oxygen Delivery Method 05/19/24 12:45 05/19/24 12:45 05/19/24 13:00 Temperature Pulse Rate 64 70 Respiratory Rate 13 12 Blood Pressure 101/57 L Pulse Oximetry 100 100 Oxygen Delivery Method 05/19/24 13:00 05/19/24 13:15 05/19/24 13:15 Temperature Pulse Rate 91 H Respiratory Rate 16 Blood Pressure 104/55 L 116/83 Pulse Oximetry 99 Oxygen Delivery Method 05/19/24 13:30 05/19/24 14:00 05/19/24 14:13 Temperature Pulse Rate 79 76 66 Respiratory Rate 12 13 17 Blood Pressure Pulse Oximetry 100 100 100 Oxygen Delivery Method 05/19/24 14:13 05/19/24 14:15 05/19/24 14:15 Temperature Pulse Rate 66 Respiratory Rate 15 Blood Pressure 102/54 L 96/53 L Pulse Oximetry 100 Oxygen Delivery Method 05/19/24 14:30 05/19/24 14:30 05/19/24 14:45 Temperature Pulse Rate 59 L 59 L Respiratory Rate 15 16 Blood Pressure 97/56 L Pulse Oximetry 100 100 Oxygen Delivery Method 05/19/24 14:45 05/19/24 15:00 05/19/24 15:00 Temperature Pulse Rate 61 Respiratory Rate Blood Pressure 90/52 L 94/51 L Pulse Oximetry 100 Oxygen Delivery Method 05/19/24 15:15 05/19/24 15:15 05/19/24 15:30 Temperature Pulse Rate 66 66 Respiratory Rate Blood Pressure 93/50 L Pulse Oximetry 100 99 Oxygen Delivery Method 05/19/24 15:30 05/19/24 15:45 05/19/24 15:45 Temperature Pulse Rate 63 Respiratory Rate Blood Pressure 87/49 L 91/53 L Pulse Oximetry 100 Oxygen Delivery Method 05/19/24 16:00 05/19/24 16:00 05/19/24 16:15 Temperature Pulse Rate 60 Respiratory Rate Blood Pressure 93/55 L 93/50 L Pulse Oximetry 100 Oxygen Delivery Method 05/19/24 16:15 05/19/24 16:30 05/19/24 16:30 Temperature Pulse Rate 61 67 Respiratory Rate 25 H 11 L Blood Pressure 107/55 L Pulse Oximetry 100 100 Oxygen Delivery Method 05/19/24 16:45 05/19/24 16:45 05/19/24 17:00 Temperature Pulse Rate 58 L Respiratory Rate 22 Blood Pressure 101/56 L 107/61 Pulse Oximetry 100 Oxygen Delivery Method 05/19/24 17:00 Temperature Pulse Rate 59 L Respiratory Rate 16 Blood Pressure Pulse Oximetry 100 Oxygen Delivery Method Oxygen Delivery Method Room Air Back/Spine/Pelvis Other: multiple needle sticks noted at L5-S1 Objective Labs 05/19/24 13:15 05/19/24 13:15 Labs: Laboratory Results - last 24 hr 05/19/24 05/19/24 13:15 13:40 WBC 4.5 RBC 3.35 L Hgb 10.5 L Hct 31.4 L MCV 93.6 MCH 31.3 MCHC 33.5 RDW 13.6 Plt Count 151 Neut % (Auto) 83.0 H Lymph % (Auto) 13.3 L [place] % (Auto) 3.0 Eos % (Auto) 0.2 L Baso % (Auto) 0.5 Neut # (Auto) 3700 Lymph # (Auto) 600 L [place] # (Auto) 100 Eos # (Auto) 0 Baso # (Auto) 0 Sodium 137 Potassium 4.0 Chloride 113 H Carbon Dioxide 17 L BUN 13 Creatinine 0.69 Estimated GFR > 60 BUN/Creatinine Ratio 18.8 Glucose 103 H Lactate 1.5 Calcium 8.2 L Total Bilirubin 0.5 AST 22 ALT 21 Alkaline Phosphatase 53 Total Protein 6.5 Albumin 3.8 Globulin 2.7 Albumin/Globulin Ratio 1.4 Procalcitonin 0.049 Urine RBC 0-1/hpf Urine WBC 1-5/hpf Ur Squamous Epith Cells 1-5 /hpf Urine Bacteria Many (>30) H Ur Culture Indicated? Cult not indicated Vol Urine Centrifuged 10ml (spun) PFSH Medical History Dermatitis Memory impairment Depression Migraines Chicken pox Behcet's disease Seizures Chronic joint pain Surgical History Anesthesia History of bone marrow biopsy Celina teeth removed No pertinent past surgical history Family History Father Mental health problem Mother Mental health problem Brother Mental health problem Sister Mental health problem Grandmother Mental health problem Aneurysm Grandfather Hypertension Hyperlipidemia Mental health problem Grandmother Hypertension Hyperlipidemia Psoriatic arthritis Tobacco & Substance Use Smoking Status: Never smoker Assessment & Plan Assessment & Plan narrative: 28y/o with complex medical history with mechanism and symptoms consistent with PDPH. Discussed conservative management and epidural blood patch. Discussed risks, potential benefits, and alternative of continuing conservative management. Pt and father agree to proceed with blood patch. Procedure: Seated, sterile prep, drape. Lido local L4-5. Hustead advanced with clear ANAT to saline at 4cm. RN assist with sterile blood draw L AC. Total of 12mL blood administered. Pt reported a slight sensation of fullness in back. No paresthesias with needle insertion or injection. Pt reported some improvement in nausea during procedure. VSS. Tolerated well. Pt advised to remain supine for 1 hour post procedure, avoid exertion or lifting for 24h. Return precautions were discussed, including worsening of symptoms, return of symptoms, fevers/chills, or any other concerns thought to be related. Pt and father expressed understanding. Time-Based Coding :: [TOTAL MINUTES] spent with patient and on the chart (including review of chart, obtaining history, exam, reviewing outside data, placing orders, documenting exam and treatment plan, and counseling patient) on [DATE].
== END 2024-05-19 20:12 | disposition home or self-care (01) ==
PROVIDERS: Emergency Medicine; Emergency Provider Emergency Medicine; PCP Registered Nurse
DX: G97.1 Other reaction to spinal and lumbar puncture (principal); R11.2 Nausea with vomiting, unspecified
CPT/HCPCS: 70450; 80053; 81003; 81015; 83605; 84145; 85025; 87040; 96361; 96374; 96375; 99284; J1885; J2060; J2405; J2765; J3010

== ENCOUNTER 2024-05-20 08:01 | Emergency (ER) | payer OTHER, SELFPAY ==
[2024-05-20] VITALS (31 sets, daily range): BP systolic 117–149; BP diastolic 59–87; PULSE 48–65; RESP 11–36; TEMP 36.9; O2SAT 94–100; BMI 25.8
--- NOTE | 2024-05-20 08:16 | ED_ITS ---
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 Lumbar Puncture was performed it was negative with gram stain with no organisms. PCR panel was negative. Patient's labs were overall reassuring with normal ESR CRP and white count of 6 patient's hemoglobin was 11, INR was 1 to afterwards patient developed headache within several hours which was worse upright with nausea or vomiting. She was seen here had head CT and labs patient received fluids and several doses of antiemetics had a blood patch with the anesthesia and felt much improved afterwards. Patient was discharged and family at bedside and patient state that she had recurrence of symptoms on return home. Dad states she has been up all night vomiting patient states she still does have a headache. No fevers. No chest pain or shortness of breath. She denies any abdominal pain. She was had some diarrhea several times overnight. No blood reported in the emesis. No urinary symptoms. Does have a known history of seizure disorder dad states this isn't similar to any prior seizure activity. He notes she has been a little bit slow no hallucinations which has been reported when she had gone to [facility] but notes that she has not really slept in the past 3 days because of her symptoms. She has had a hysterectomy in the past. Dr. Beavers is her primary care physician. She was accompanied by her father who she also reports is her caregiver. Related Data Home Medications Medication Instructions Recorded Confirmed clonazepam 0.5 mg tablet 0.5 mg PO DAILY 11/15/19 09/22/20 oxcarbazepine 600 mg tablet 600 mg PO BID 11/15/19 09/22/20 (Trileptal) doxazosin 1 mg tablet 1 mg PO DAILY 12/03/20 12/03/20 lithium carbonate 300 mg capsule 300 mg PO BEDTIME 12/03/20 12/03/20 ramelteon 8 mg tablet 8 mg PO BEDTIME 12/03/20 12/03/20 Previous Rx's Medication Instructions Recorded clindamycin phosphate 1 % topical 1 applic topical DAILY 01/15/20 gel hidradenitis supperativa #60 grams triamcinolone acetonide 0.025 % 1 applic topical BID dermatosis 09/22/20 topical cream #15 grams pneumoc 13-isidro conj-dip cr(PF) 0.5 0.5 ml IM ONCE #0.5 mL 12/09/20 mL IM syringe (Prevnar 13 (PF)) pneumococcal 23-isidro ps vaccine 25 0.5 ml IM ONCE #0.5 mL 12/09/20 mcg/0.5 mL injection solution (Pneumovax-23) varicella-zoster glycoE vacc-[id number] 0.5 ml IM ONCE #1 ea 12/09/20 adj(PF) 50 mcg/0.5 mL IM susp, kit (Shingrix (PF)) prednisolone acetate 1 % eye 2 drp EYE-RIGHT Q6H #15 mL 12/13/20 drops,suspension [id number] 1 cap PO Q8H PRN pain 1 week #21 05/20/24 50 mg-300 mg-40 mg capsule caps (Fioricet) Allergies Allergy/AdvReac Type Severity Reaction Status Date / Time dapsone Allergy Verified 05/19/24 11:32 erythromycin base Allergy Verified 05/19/24 11:32 Review of Systems <Ira Todd DO - Last Filed: 05/21/24 08:15> Review of Systems ROS Unobtainable: All systems reviewed & are unremarkable except as noted in HPI and below Patient History <Ira Todd DO - Last Filed: 05/21/24 08:15> Medical History Dermatitis Memory impairment Depression Migraines Chicken pox Behcet's disease Seizures Chronic joint pain Surgical History Anesthesia History of bone marrow biopsy [place] teeth removed No pertinent past surgical history Family History Father Mental health problem Mother Mental health problem Brother Mental health problem Sister Mental health problem Grandmother Mental health problem Aneurysm Grandfather Hypertension Hyperlipidemia Mental health problem Grandmother Hypertension Hyperlipidemia Psoriatic arthritis Social History Smoking Status: Never smoker Smoking Status: Never smoker alcohol intake frequency: holidays/special occasions only Exam <Ira Todd DO - Last Filed: 05/21/24 08:15> Narrative Exam Narrative: GEN: Pale, nontoxic, alert and oriented x 3, patient appears to be in mild distress. HEENT: Atraumatic, pupils are equal round reactive to light, extraocular movements are intact, no nystagmus, nares are clear, TMs are clear with no fluid, there is no conjunctival pallor. Throat is clear without any exudates, erythema, tonsillar enlargement or uvular deviation HEART: Regular rate and rhythm without murmur, clicks, rubs. Pulses are equal in upper and lower extremities LUNGS:Lungs clear to auscultation, no wheezes, rales, crackles, chest moves symmetrically, no tachypnea or accessory muscle use ABD:bowel sounds normal, soft, non-tender, no guarding, rebound, rigidity, no masses noted, no hepatosplenomegaly :No CVA tenderness MSCL: Non-tender, no muscle atrophy, muscles strength 5/5 upper and lower extremities, full range of motion. NEURO:CN 2-12 intact, sensation normal, reflexes 2/4 upper and lower extremities. Initial Vital Signs Initial Vital Signs: Vital Signs Pulse Rate 53 L 05/20/24 08:07 Blood Pressure 126/61 05/20/24 08:07 Pulse Oximetry 100 05/20/24 08:07 Oxygen Delivery Method Room Air 05/20/24 08:07 <Adonis Berry DO - Last Filed: 05/20/24 19:26> Initial Vital Signs Initial Vital Signs: Vital Signs Pulse Rate 53 L 05/20/24 08:07 Blood Pressure 126/61 05/20/24 08:07 Pulse Oximetry 100 05/20/24 08:07 Oxygen Delivery Method Room Air 05/20/24 08:07 Course <Ira Todd, DO - Last Filed: 05/21/24 08:15> Orders Ordered: Discontinued Medications Diphenhydramine HCl (Diphenhydramine 50 Mg/Ml Vial) 50 mg IV NOW ONE Stop: 05/20/24 17:40 Last Admin: 05/20/24 17:41 Dose: 50 mg Documented By: MORENA Droperidol (Droperidol 2.5 Mg/Ml Vial) 1.25 mg IV NOW ONE Stop: 05/20/24 13:06 Last Admin: 05/20/24 13:25 Dose: 1.25 mg Documented By: MORENA Sodium Chloride (Normal Saline 0.9%) 1,000 mls @ 1,000 mls/hr IV BOLUS ONE Stop: 05/20/24 09:25 Last Infusion: 05/20/24 10:12 Dose: Infused Documented By: Admin: 05/20/24 09:10 Dose: 1,000 mls/hr Documented By: TONY Sodium Chloride (Normal Saline 0.9%) 1,000 mls @ 150 mls/hr IV CONT [facility] Last Infusion: 05/20/24 18:54 Dose: Infused Documented By: Admin: 05/20/24 11:45 Dose: 150 mls/hr Documented By: MORENA Ketorolac Tromethamine (Ketorolac 30 Mg/Ml Vial) 15 mg IV NOW ONE Stop: 05/20/24 08:27 Last Admin: 05/20/24 09:09 Dose: 15 mg Documented By: TONY Lorazepam (Lorazepam 2 Mg/Ml Inj) 0.5 mg IV NOW ONE Stop: 05/20/24 09:47 Last Admin: 05/20/24 09:57 Dose: 0.5 mg Documented By: TIMOTEO Ondansetron HCl (Ondansetron 4 Mg/2 Ml Inj) 4 mg IV NOW ONE Stop: 05/20/24 08:27 Last Admin: 05/20/24 09:10 Dose: 4 mg Documented By: TONY Oxcarbazepine (Oxcarbazepine 150 Mg Tablet) 600 mg PO DAILY [facility] Last Admin: 05/20/24 10:35 Dose: 600 mg Documented By: TIMOTEO Vital Signs Vital signs: Vital Signs - 8 hr 05/20/24 11:44 05/20/24 11:56 05/20/24 11:56 Pulse Rate 60 57 L Respiratory Rate 26 H Blood Pressure 130/69 Pulse Oximetry 94 99 Oxygen Delivery Method 05/20/24 12:00 05/20/24 12:00 05/20/24 12:01 Pulse Rate 54 L 52 L Respiratory Rate 36 H 21 Blood Pressure 135/73 Pulse Oximetry 100 Oxygen Delivery Method 05/20/24 12:01 05/20/24 12:30 05/20/24 12:30 Pulse Rate 55 L 53 L Respiratory Rate 21 26 H Blood Pressure 139/68 Pulse Oximetry 100 100 Oxygen Delivery Method 05/20/24 12:30 05/20/24 13:00 05/20/24 13:00 Pulse Rate 55 L 51 L Respiratory Rate 23 14 Blood Pressure 133/81 140/63 Pulse Oximetry 100 100 Oxygen Delivery Method Room Air 05/20/24 13:30 05/20/24 13:30 05/20/24 13:32 Pulse Rate 62 60 Respiratory Rate 27 H 22 Blood Pressure 123/62 123/62 Pulse Oximetry 100 100 Oxygen Delivery Method Room Air 05/20/24 14:00 05/20/24 14:00 05/20/24 14:30 Pulse Rate 55 L 61 Respiratory Rate 16 19 Blood Pressure 122/59 L Pulse Oximetry 100 100 Oxygen Delivery Method 05/20/24 14:59 05/20/24 14:59 05/20/24 15:00 Pulse Rate 55 L Respiratory Rate 11 L Blood Pressure 149/83 H 138/78 Pulse Oximetry 100 Oxygen Delivery Method 05/20/24 15:00 05/20/24 15:30 05/20/24 15:30 Pulse Rate 56 L 55 L Respiratory Rate 32 H 18 Blood Pressure 147/87 H Pulse Oximetry 100 98 Oxygen Delivery Method 05/20/24 16:00 05/20/24 16:00 05/20/24 16:30 Pulse Rate 55 L Respiratory Rate 14 Blood Pressure 139/64 133/81 Pulse Oximetry 100 Oxygen Delivery Method 05/20/24 16:30 05/20/24 17:00 05/20/24 17:00 Pulse Rate 57 L 56 L Respiratory Rate 22 24 Blood Pressure 132/72 Pulse Oximetry 100 100 Oxygen Delivery Method 05/20/24 17:30 05/20/24 17:45 05/20/24 17:45 Pulse Rate 57 L 57 L Respiratory Rate 12 12 Blood Pressure 133/71 Pulse Oximetry 100 100 Oxygen Delivery Method <Adonis Berry DO - Last Filed: 05/20/24 19:26> Orders Ordered: Discontinued Medications Diphenhydramine HCl (Diphenhydramine 50 Mg/Ml Vial) 50 mg IV NOW ONE Stop: 05/20/24 17:40 Last Admin: 05/20/24 17:41 Dose: 50 mg Documented By: MORENA Droperidol (Droperidol 2.5 Mg/Ml Vial) 1.25 mg IV NOW ONE Stop: 05/20/24 13:06 Last Admin: 05/20/24 13:25 Dose: 1.25 mg Documented By: MORENA Sodium Chloride (Normal Saline 0.9%) 1,000 mls @ 1,000 mls/hr IV BOLUS ONE Stop: 05/20/24 09:25 Last Infusion: 05/20/24 10:12 Dose: Infused Documented By: Admin: 05/20/24 09:10 Dose: 1,000 mls/hr Documented By: TONY Sodium Chloride (Normal Saline 0.9%) 1,000 mls @ 150 mls/hr IV CONT [facility] Last Infusion: 05/20/24 18:54 Dose: Infused Documented By: Admin: 05/20/24 11:45 Dose: 150 mls/hr Documented By: MORENA Ketorolac Tromethamine (Ketorolac 30 Mg/Ml Vial) 15 mg IV NOW ONE Stop: 05/20/24 08:27 Last Admin: 05/20/24 09:09 Dose: 15 mg Documented By: TONY Lorazepam (Lorazepam 2 Mg/Ml Inj) 0.5 mg IV NOW ONE Stop: 05/20/24 09:47 Last Admin: 05/20/24 09:57 Dose: 0.5 mg Documented By: TIMOTEO Ondansetron HCl (Ondansetron 4 Mg/2 Ml Inj) 4 mg IV NOW ONE Stop: 05/20/24 08:27 Last Admin: 05/20/24 09:10 Dose: 4 mg Documented By: TONY Oxcarbazepine (Oxcarbazepine 150 Mg Tablet) 600 mg PO DAILY [facility] Last Admin: 05/20/24 10:35 Dose: 600 mg Documented By: TIMOTEO Vital Signs Vital signs: Vital Signs - 8 hr 05/20/24 11:44 05/20/24 11:56 05/20/24 11:56 Pulse Rate 60 57 L Respiratory Rate 26 H Blood Pressure 130/69 Pulse Oximetry 94 99 Oxygen Delivery Method 05/20/24 12:00 05/20/24 12:00 05/20/24 12:01 Pulse Rate 54 L 52 L Respiratory Rate 36 H 21 Blood Pressure 135/73 Pulse Oximetry 100 Oxygen Delivery Method 05/20/24 12:01 05/20/24 12:30 05/20/24 12:30 Pulse Rate 55 L 53 L Respiratory Rate 21 26 H Blood Pressure 139/68 Pulse Oximetry 100 100 Oxygen Delivery Method 05/20/24 12:30 05/20/24 13:00 05/20/24 13:00 Pulse Rate 55 L 51 L Respiratory Rate 23 14 Blood Pressure 133/81 140/63 Pulse Oximetry 100 100 Oxygen Delivery Method Room Air 05/20/24 13:30 05/20/24 13:30 05/20/24 13:32 Pulse Rate 62 60 Respiratory Rate 27 H 22 Blood Pressure 123/62 123/62 Pulse Oximetry 100 100 Oxygen Delivery Method Room Air 05/20/24 14:00 05/20/24 14:00 05/20/24 14:30 Pulse Rate 55 L 61 Respiratory Rate 16 19 Blood Pressure 122/59 L Pulse Oximetry 100 100 Oxygen Delivery Method 05/20/24 14:59 05/20/24 14:59 05/20/24 15:00 Pulse Rate 55 L Respiratory Rate 11 L Blood Pressure 149/83 H 138/78 Pulse Oximetry 100 Oxygen Delivery Method 05/20/24 15:00 05/20/24 15:30 05/20/24 15:30 Pulse Rate 56 L 55 L Respiratory Rate 32 H 18 Blood Pressure 147/87 H Pulse Oximetry 100 98 Oxygen Delivery Method 05/20/24 16:00 05/20/24 16:00 05/20/24 16:30 Pulse Rate 55 L Respiratory Rate 14 Blood Pressure 139/64 133/81 Pulse Oximetry 100 Oxygen Delivery Method 05/20/24 16:30 05/20/24 17:00 05/20/24 17:00 Pulse Rate 57 L 56 L Respiratory Rate 22 24 Blood Pressure 132/72 Pulse Oximetry 100 100 Oxygen Delivery Method 05/20/24 17:30 05/20/24 17:45 05/20/24 17:45 Pulse Rate 57 L 57 L Respiratory Rate 12 12 Blood Pressure 133/71 Pulse Oximetry 100 100 Oxygen Delivery Method Medical Decision Making <Ira Todd, - Last Filed: 05/21/24 08:15> Lab Data 05/20/24 09:02 05/20/24 09:02 Labs: Lab Results 05/20/24 05/20/24 05/20/24 Range/Units 08:51 09:02 12:55 WBC 7.7 D (4.5-11.0) X10^3/uL RBC 3.45 L (4.0-5.2) X10^6/uL Hgb 10.9 L (12.0-16.0) g/dL Hct 32.4 L (36-46) % MCV 94.0 (80-100) fL MCH 31.6 (26-34) PG MCHC 33.6 (30-36) % RDW 13.6 (11.6-14.8) % Plt Count 167 (150-400) X10^3/uL Neut % (Auto) 85.0 H (50-75) % Lymph % (Auto) 10.3 L (25-40) % [place] % (Auto) 4.4 (3-14) % Eos % (Auto) 0.0 L (2-4) % Baso % (Auto) 0.3 (0-2) % Neut # (Auto) 6600 (0142-8592) /uL Lymph # (Auto) 800 L (6683-9008) /uL [place] # (Auto) 300 (0-900) /uL Eos # (Auto) 0 (0-450) /uL Baso # (Auto) 0 (0-100) /uL ESR 6 (0-20) MM/HR Sodium 137 (137-145) mmol/L Potassium 4.2 (3.4-5.1) mmol/L Chloride 109 H (98-107) mmol/L Carbon Dioxide 16 L (22-32) mmol/L BUN 14 (7-17) mg/dL Creatinine 0.73 (0.52-1.04) mg/dL Estimated GFR > 60 (>60) mL/min BUN/Creatinine Ratio 19.2 (6-22) Glucose 115 H (70-100) mg/dL Lactate 1.1 (0.7-2.1) mmol/L Calcium 9.4 (8.4-10.2) mg/dL Total Bilirubin 0.7 (0.2-1.3) mg/dL AST 22 (14-36) IU/L ALT 20 (<35) IU/L Alkaline Phosphatase 58 (38-126) U/L Total Creatine Kinase 63 (30-135) U/L Troponin I < 0.012 (0.01-0.034) ng/mL C-Reactive Protein < 0.5 (<1.0) mg/dL NT-Pro-B Natriuret Pep 1130 H (<125) pg/mL Total Protein 7.2 (6.3-8.2) g/dL Albumin 4.3 (3.5-5.0) g/dL Globulin 2.9 (1.7-4.1) g/dL Albumin/Globulin Ratio 1.5 (1.0-2.8) Lipase 80 (23-300) U/L Procalcitonin 0.053 (<0.5) ng/mL Urine Color Dark yellow Urine Appearance Clear Urine pH 6.5 (4.5-8.0) Ur Specific [place] 1.020 (1.000-1.035) Urine Protein 1+ H (Negative) Urine Glucose (UA) Negative (Negative) g/dL Urine Ketones 3+ H (NEGATIVE) Urine Occult Blood Negative (Negative) Urine Nitrate Negative (Negative) Urine Bilirubin 1+ H (NEGATIVE) Ur Bilirubin Confirm Negative (Negative) Urine Urobilinogen 1.0 (0.2) E.U./dL Ur Leukocyte Esterase Negative (NEGATIVE) Urine RBC 0-1/hpf (0-5/HPF) Urine WBC 0-1/hpf (0-5/HPF) Ur Squamous Epith Cells 0-1 /hpf (0-5/HPF) Urine Bacteria Occasional (0-1) D (None) Urine Mucus 1+ H (Negative) Ur Culture Indicated? Cult not indicated Vol Urine Centrifuged 10ml (spun) U Opiates 300ng/mL cut Negative (Negative) Ur Oxycodone Screen Negative (Negative) Urine Methadone Screen Negative (Negative) Ur Barbiturates Screen Negative (Negative) U Tricyclic Antidepress Negative (Negative) Ur Phencyclidine Scrn Negative (Negative) Ur Amphetamines Screen Negative (Negative) U Methamphetamines Scrn Negative (Negative) Ur MDMA Scrn (Ecstasy) Negative (Negative) U Benzodiazepines Scrn Positive H (Negative) [place] 0.5 L (0.6-1.2) mmol/L Urine Cocaine Screen Negative (Negative) U Marijuana (THC) Screen Positive H (Negative) Urine Specific [place] (Normal) Ethyl Alcohol < 10 ( - 10) mg/dL Ur Creatinine (Normal) SARS-CoV-2 (PCR) Negative (Negative) Influenza A (RT-PCR) Flu a negative (NEGATIVE) Influenza B (RT-PCR) Flu b negative (NEGATIVE) RSV (PCR) Negative (Negative) 05/20/24 Range/Units 12:55 WBC (4.5-11.0) X10^3/uL RBC (4.0-5.2) X10^6/uL Hgb (12.0-16.0) g/dL Hct (36-46) % MCV (80-100) fL MCH (26-34) PG MCHC (30-36) % RDW (11.6-14.8) % Plt Count (150-400) X10^3/uL Neut % (Auto) (50-75) % Lymph % (Auto) (25-40) % [place] % (Auto) (3-14) % Eos % (Auto) (2-4) % Baso % (Auto) (0-2) % Neut # (Auto) (3909-5004) /uL Lymph # (Auto) (3495-0955) /uL [place] # (Auto) (0-900) /uL Eos # (Auto) (0-450) /uL Baso # (Auto) (0-100) /uL ESR (0-20) MM/HR Sodium (137-145) mmol/L Potassium (3.4-5.1) mmol/L Chloride (98-107) mmol/L Carbon Dioxide (22-32) mmol/L BUN (7-17) mg/dL Creatinine (0.52-1.04) mg/dL Estimated GFR (>60) mL/min BUN/Creatinine Ratio (6-22) Glucose (70-100) mg/dL Lactate (0.7-2.1) mmol/L Calcium (8.4-10.2) mg/dL Total Bilirubin (0.2-1.3) mg/dL AST (14-36) IU/L ALT (<35) IU/L Alkaline Phosphatase (38-126) U/L Total Creatine Kinase (30-135) U/L Troponin I (0.01-0.034) ng/mL C-Reactive Protein (<1.0) mg/dL NT-Pro-B Natriuret Pep (<125) pg/mL Total Protein (6.3-8.2) g/dL Albumin (3.5-5.0) g/dL Globulin (1.7-4.1) g/dL Albumin/Globulin Ratio (1.0-2.8) Lipase (23-300) U/L Procalcitonin (<0.5) ng/mL Urine Color Urine Appearance Urine pH Normal (4.5-8.0) Ur Specific [place] (1.000-1.035) Urine Protein (Negative) Urine Glucose (UA) (Negative) g/dL Urine Ketones (NEGATIVE) Urine Occult Blood (Negative) Urine Nitrate (Negative) Urine Bilirubin (NEGATIVE) Ur Bilirubin Confirm (Negative) Urine Urobilinogen (0.2) E.U./dL Ur Leukocyte Esterase (NEGATIVE) Urine RBC (0-5/HPF) Urine WBC (0-5/HPF) Ur Squamous Epith Cells (0-5/HPF) Urine Bacteria (None) Urine Mucus (Negative) Ur Culture Indicated? Vol Urine Centrifuged U Opiates 300ng/mL cut (Negative) Ur Oxycodone Screen (Negative) Urine Methadone Screen (Negative) Ur Barbiturates Screen (Negative) U Tricyclic Antidepress (Negative) Ur Phencyclidine Scrn (Negative) Ur Amphetamines Screen (Negative) U Methamphetamines Scrn (Negative) Ur MDMA Scrn (Ecstasy) (Negative) U Benzodiazepines Scrn (Negative) [place] (0.6-1.2) mmol/L Urine Cocaine Screen (Negative) U Marijuana (THC) Screen (Negative) Urine Specific [place] Normal (Normal) Ethyl Alcohol ( - 10) mg/dL Ur Creatinine Normal (Normal) SARS-CoV-2 (PCR) (Negative) Influenza A (RT-PCR) (NEGATIVE) Influenza B (RT-PCR) (NEGATIVE) RSV (PCR) (Negative) Point of Care Testing Glucose POC 115 Point of care testing: Point of Care Testing Glucose POC 115 ECG Data Attestation: I personally reviewed and interpreted this ECG as follows: Prior ECG tracings: available for review Interpretation: Sinus bradycardia rate of 51 VA 128 QRS 84 QTC of 409. Patient was prior from 10/26/2020 appears similar accept V2 was upright today is biphasic otherwise appears similar to prior. [facility] Narrative Medical decision making narrative: Reviewed patient's records from [facility] with a lumbar puncture on 05/17/24 patient had white count is 6 CRP was less than 5 ESR was 5 g stain from spinal culture showed no organisms meningitis CSF PCR panel was negative, CSF glucose was 53, protein was 21 cell count was colorless, clear. Patient had 1 white blood cell, 1 red blood cell.. Opening pressure was 22. Notes MRI brain from today from clinic impression unremarkable MRI examination of brain with and without contrast on May 17. Patient had negative non-con head CT yesterday. Today patient has no acute neurologic changes, feels very similar to yesterday we will repeat some workup and patient notes a little bit of abdominal discomfort on exam so abdominal workup was included as well. Especially as patient has a complicated medical history although patient and family both state symptoms seemed to be very much post lumbar puncture. One of their main concerns is that patient takes multiple medications including antiseizure medication and has had difficulty keeping them down. EKG T-wave slightly changes in V2 no other contiguous lead changes. Labs labs show normal white count of 7.7 hemoglobin is 10.9, platelets are 167. Chemistries show a CO2 of 16 chloride of 109 otherwise appropriate electrolytes and BUN glucose is 115 lactate 1.1 LFTs are negative troponins less than 0.012 CRP is less than 0.5, ESR is less than 6 procalcitonin is negative at 0.053 lipase is 80 BNP is 1130. etoh less than 10. [place] level 0.5 Patient had urine yesterday that showed many bacteria COVID/influenza/RSV is negative Chest x-ray is negative Head CT shows no acute change Abd/pelvis CT intact right ovarian hemorrhagic follicle measuring 2.6 cm suspected fluid overload with diffuse gallbladder wall thickening and periportal edema acute hepatitis would also have a similar appearance. Patient has had fluids, Toradol and Zofran for headache and nausea or vomiting no persistent vomiting after these medications but patient felt very crampy in her legs so was given a dose of lorazepam 0.5 mg IV. On rechecked patient has not had persistent vomiting but does have some abdominal pain on repeat evaluations we will obtain imaging of the abdomen so far patient has has been appropriate given her oral dose of oxcarbazepine here in the department. Patient did have vomiting after she went to CT was given a dose of droperidol to see if this would be helpful. Spoke with patients mom, she notes patient had PCM appointment had had increased fatigue body pain things like that so they obtain EBV and CMV testing was found to have positive IgG and IgM and then patient who has had some intermittent hallucinations in the past had some and they felt her mentation was worse so then went to [facility] and had workup including MRI as an outpatient which was negative of the brain and lumbar puncture. Both mom dad inpatient all state that patient has headaches and nausea or vomiting started very shortly after lumbar puncture. Patient does follow with Dr. 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 Was following with [facility] but they only follow up to age 27 in his in process of setting up care at [facility] with a an appointment on May 24. Spoke with hospitalist suspect may still be post lumbar puncture reviewed patient's findings. Spoke with anesthesia, Dr. Price: Notes that he would be willing to repeat if patient did find relief with the initial 1 even if brief. Spoke with patient family they state and the patient herself states that she did. Dr. Price in the emergency department. Plan for 2 hour laying flat after blood patch. Patient and family are willing to attempt blood patch. Both parents and patient feel that is symptoms started after her lumbar puncture. Recheck about 1.5 hours after blood patch. Yesterday patient felt significantly better afterwards. On recheck patient had an additional episode of dry heave but overall feeling better. Did give a dose of Benadryl for antinausea. Patient signed out to Dr. Berry little bit of additional observation goal is for discharge home but if patient has persistent vomiting and unable to keep down her seizure medications will re-evaluate. 1800: received signed out by Dr. Todd, patient has had significant workup for nausea and vomiting, most likely secondary to poor stirrup headache, patient has already received 2nd blood patch here in the emergency department. Final disposition pending re-evaluation. 1914: patient was re-evaluated by me, she states that she is feeling improved after administration of medications here, I will send patient home with medication of Fioricet, patient without any focal deficits at time of discharge NIH of 0 family and patient was given strict return precautions and they verbalized understanding of this and agrees to being discharged home with outpatient follow up <Adonis Berry, DO - Last Filed: 05/20/24 19:26> Lab Data Labs: Lab Results 05/20/24 05/20/24 05/20/24 Range/Units 08:51 09:02 12:55 WBC 7.7 D (4.5-11.0) X10^3/uL RBC 3.45 L (4.0-5.2) X10^6/uL Hgb 10.9 L (12.0-16.0) g/dL Hct 32.4 L (36-46) % MCV 94.0 (80-100) fL MCH 31.6 (26-34) PG MCHC 33.6 (30-36) % RDW 13.6 (11.6-14.8) % Plt Count 167 (150-400) X10^3/uL Neut % (Auto) 85.0 H (50-75) % Lymph % (Auto) 10.3 L (25-40) % [place] % (Auto) 4.4 (3-14) % Eos % (Auto) 0.0 L (2-4) % Baso % (Auto) 0.3 (0-2) % Neut # (Auto) 6600 (8612-7903) /uL Lymph # (Auto) 800 L (3706-7010) /uL [place] # (Auto) 300 (0-900) /uL Eos # (Auto) 0 (0-450) /uL Baso # (Auto) 0 (0-100) /uL ESR 6 (0-20) MM/HR Sodium 137 (137-145) mmol/L Potassium 4.2 (3.4-5.1) mmol/L Chloride 109 H (98-107) mmol/L Carbon Dioxide 16 L (22-32) mmol/L BUN 14 (7-17) mg/dL Creatinine 0.73 (0.52-1.04) mg/dL Estimated GFR > 60 (>60) mL/min BUN/Creatinine Ratio 19.2 (6-22) Glucose 115 H (70-100) mg/dL Lactate 1.1 (0.7-2.1) mmol/L Calcium 9.4 (8.4-10.2) mg/dL Total Bilirubin 0.7 (0.2-1.3) mg/dL AST 22 (14-36) IU/L ALT 20 (<35) IU/L Alkaline Phosphatase 58 (38-126) U/L Total Creatine Kinase 63 (30-135) U/L Troponin I < 0.012 (0.01-0.034) ng/mL C-Reactive Protein < 0.5 (<1.0) mg/dL NT-Pro-B Natriuret Pep 1130 H (<125) pg/mL Total Protein 7.2 (6.3-8.2) g/dL Albumin 4.3 (3.5-5.0) g/dL Globulin 2.9 (1.7-4.1) g/dL Albumin/Globulin Ratio 1.5 (1.0-2.8) Lipase 80 (23-300) U/L Procalcitonin 0.053 (<0.5) ng/mL Urine Color Dark yellow Urine Appearance Clear Urine pH 6.5 (4.5-8.0) Ur Specific Hag[place] 1.020 (1.000-1.035) Urine Protein 1+ H (Negative) Urine Glucose (UA) Negative (Negative) g/dL Urine Ketones 3+ H (NEGATIVE) Urine Occult Blood Negative (Negative) Urine Nitrate Negative (Negative) Urine Bilirubin 1+ H (NEGATIVE) Ur Bilirubin Confirm Negative (Negative) Urine Urobilinogen 1.0 (0.2) E.U./dL Ur Leukocyte Esterase Negative (NEGATIVE) Urine RBC 0-1/hpf (0-5/HPF) Urine WBC 0-1/hpf (0-5/HPF) Ur Squamous Epith Cells 0-1 /hpf (0-5/HPF) Urine Bacteria Occasional (0-1) D (None) Urine Mucus 1+ H (Negative) Ur Culture Indicated? Cult not indicated Vol Urine Centrifuged 10ml (spun) U Opiates 300ng/mL cut Negative (Negative) Ur Oxycodone Screen Negative (Negative) Urine Methadone Screen Negative (Negative) Ur Barbiturates Screen Negative (Negative) U Tricyclic Antidepress Negative (Negative) Ur Phencyclidine Scrn Negative (Negative) Ur Amphetamines Screen Negative (Negative) U Methamphetamines Scrn Negative (Negative) Ur MDMA Scrn (Ecstasy) Negative (Negative) U Benzodiazepines Scrn Positive H (Negative) [place] 0.5 L (0.6-1.2) mmol/L Urine Cocaine Screen Negative (Negative) U Marijuana (THC) Screen Positive H (Negative) Urine Specific [place] (Normal) Ethyl Alcohol < 10 ( - 10) mg/dL Ur Creatinine (Normal) SARS-CoV-2 (PCR) Negative (Negative) Influenza A (RT-PCR) Flu a negative (NEGATIVE) Influenza B (RT-PCR) Flu b negative (NEGATIVE) RSV (PCR) Negative (Negative) 05/20/24 Range/Units 12:55 WBC (4.5-11.0) X10^3/uL RBC (4.0-5.2) X10^6/uL Hgb (12.0-16.0) g/dL Hct (36-46) % MCV (80-100) fL MCH (26-34) PG MCHC (30-36) % RDW (11.6-14.8) % Plt Count (150-400) X10^3/uL Neut % (Auto) (50-75) % Lymph % (Auto) (25-40) % [place] % (Auto) (3-14) % Eos % (Auto) (2-4) % Baso % (Auto) (0-2) % Neut # (Auto) (6171-7934) /uL Lymph # (Auto) (4496-1169) /uL [place] # (Auto) (0-900) /uL Eos # (Auto) (0-450) /uL Baso # (Auto) (0-100) /uL ESR (0-20) MM/HR Sodium (137-145) mmol/L Potassium (3.4-5.1) mmol/L Chloride (98-107) mmol/L Carbon Dioxide (22-32) mmol/L BUN (7-17) mg/dL Creatinine (0.52-1.04) mg/dL Estimated GFR (>60) mL/min BUN/Creatinine Ratio (6-22) Glucose (70-100) mg/dL Lactate (0.7-2.1) mmol/L Calcium (8.4-10.2) mg/dL Total Bilirubin (0.2-1.3) mg/dL AST (14-36) IU/L ALT (<35) IU/L Alkaline Phosphatase (38-126) U/L Total Creatine Kinase (30-135) U/L Troponin I (0.01-0.034) ng/mL C-Reactive Protein (<1.0) mg/dL NT-Pro-B Natriuret Pep (<125) pg/mL Total Protein (6.3-8.2) g/dL Albumin (3.5-5.0) g/dL Globulin (1.7-4.1) g/dL Albumin/Globulin Ratio (1.0-2.8) Lipase (23-300) U/L Procalcitonin (<0.5) ng/mL Urine Color Urine Appearance Urine pH Normal (4.5-8.0) Ur Specific [place] (1.000-1.035) Urine Protein (Negative) Urine Glucose (UA) (Negative) g/dL Urine Ketones (NEGATIVE) Urine Occult Blood (Negative) Urine Nitrate (Negative) Urine Bilirubin (NEGATIVE) Ur Bilirubin Confirm (Negative) Urine Urobilinogen (0.2) E.U./dL Ur Leukocyte Esterase (NEGATIVE) Urine RBC (0-5/HPF) Urine WBC (0-5/HPF) Ur Squamous Epith Cells (0-5/HPF) Urine Bacteria (None) Urine Mucus (Negative) Ur Culture Indicated? Vol Urine Centrifuged U Opiates 300ng/mL cut (Negative) Ur Oxycodone Screen (Negative) Urine Methadone Screen (Negative) Ur Barbiturates Screen (Negative) U Tricyclic Antidepress (Negative) Ur Phencyclidine Scrn (Negative) Ur Amphetamines Screen (Negative) U Methamphetamines Scrn (Negative) Ur MDMA Scrn (Ecstasy) (Negative) U Benzodiazepines Scrn (Negative) [place] (0.6-1.2) mmol/L Urine Cocaine Screen (Negative) U Marijuana (THC) Screen (Negative) Urine Specific [place] Normal (Normal) Ethyl Alcohol ( - 10) mg/dL Ur Creatinine Normal (Normal) SARS-CoV-2 (PCR) (Negative) Influenza A (RT-PCR) (NEGATIVE) Influenza B (RT-PCR) (NEGATIVE) RSV (PCR) (Negative) Point of Care Testing Glucose POC 115 Point of care testing: Point of Care Testing Glucose POC 115 [facility] Narrative Medical decision making narrative: Reviewed patient's records from [facility] with a lumbar puncture on 05/17/24 patient had white count is 6 CRP was less than 5 ESR was 5 g stain from spinal culture showed no organisms meningitis CSF PCR panel was negative, CSF glucose was 53, protein was 21 cell count was colorless, clear. Patient had 1 white blood cell, 1 red blood cell.. Opening pressure was 22. Notes MRI brain from today from clinic impression unremarkable MRI examination of brain with and without contrast on May 17. Patient had negative non-con head CT yesterday. EKG T-wave slightly changes in V2 no other contiguous lead changes. Labs labs show normal white count of 7.7 hemoglobin is 10.9, platelets are 167. Chemistries show a CO2 of 16 chloride of 109 otherwise appropriate electrolytes and BUN glucose is 115 lactate 1.1 LFTs are negative troponins less than 0.012 CRP is less than 0.5, ESR is less than 6 procalcitonin is negative at 0.053 lipase is 80 BNP is 1130. etoh less than 10. [place] level 0.5 Patient had urine yesterday that showed many bacteria COVID/influenza/RSV is negative Chest x-ray is negative Head CT shows no acute change Abd/pelvis CT intact right ovarian hemorrhagic follicle measuring 2.6 cm suspected fluid overload with diffuse gallbladder wall thickening and periportal edema acute hepatitis would also have a similar appearance. Patient has had fluids, Toradol and Zofran for headache and nausea or vomiting no persistent vomiting after these medications but patient felt very crampy in her legs so was given a dose of lorazepam 0.5 mg IV. On rechecked patient has not had persistent vomiting but does have some abdominal pain on repeat evaluations we will obtain imaging of the abdomen so far patient has has been appropriate given her oral dose of oxcarbazepine here in the department. Patient did have vomiting after she went to CT was given a dose of droperidol to see if this would be helpful. Spoke with patients mom, she notes patient had PCM appointment had had increased fatigue body pain things like that so they obtain EBV and CMV testing was found to have positive IgG and IgM and then patient who has had some intermittent hallucinations in the past had some and they felt her mentation was worse so then went to [facility] and had workup including MRI as an outpatient which was negative of the brain and lumbar puncture. Both mom dad inpatient all state that patient has headaches and nausea or vomiting started very shortly after lumbar puncture. Patient does follow with Dr. 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 Was following with [facility] but they only follow up to age 27 in his in process of setting up care at [facility] with a an appointment on May 24. Spoke with hospitalist suspect may still be post lumbar puncture reviewed patient's findings. Spoke with anesthesia, Dr. Price: Notes that he would be willing to repeat if patient did find relief with the initial 1 even if brief. Spoke with patient family they state and the patient herself states that she did. Dr. Price in the emergency department. Plan for 2 hour laying flat after blood patch. Patient and family are willing to attempt blood patch. Both parents and patient feel that is symptoms started after her lumbar puncture. Recheck about 1.5 hours after blood patch. Yesterday patient felt significantly better afterwards. On recheck 1800: received signed out by Dr. Todd, patient has had significant workup for nausea and vomiting, most likely secondary to poor stirrup headache, patient has already received 2nd blood patch here in the emergency department. Final disposition pending re-evaluation. 1914: patient was re-evaluated by me, she states that she is feeling improved after administration of medications here, I will send patient home with medication of Fioricet, patient without any focal deficits at time of discharge NIH of 0 family and patient was given strict return precautions and they verbalized understanding of this and agrees to being discharged home with outpatient follow up Discharge Plan Departure Patient Disposition: Home Clinical Impression: Post-dural puncture headache Instructions: DI for Epidural Blood Patch Activity Restrictions/Additional Instructions: please follow up with your neurologist in outpatient setting Please read the discharge instructions sheet carefully and bring all papers to all doctor follow-up visits, as it may contain information that your doctor may want to see. Disease processes change and evolve, if your symptoms worsen or if you develop any new symptoms that are concerning to you please return for evaluation. Your evaluation today does not show any evidence of any life- threatening/serious illnesses requiring admission to the hospital or surgery. Please follow-up with your doctor for re-evaluation in approximately 1 day. Seek immediate medical attention for any worrisome symptoms. *If you do not have a primary care provider please contact the [facility] Resource line at [phone]. They will ask some questions about your medical history and help get you set up with a doctor in the community. Prescriptions: New bgzwnbcaez-wclrghgyixisi-otkf [Fioricet] 50-300-40 mg capsule 1 cap PO Q8H PRN (Reason: pain) 7 Days Qty: 21 0RF No Action Shingrix (PF) 50 mcg/0.5 mL suspension for reconstitution 0.5 ml IM ONCE Qty: 1 1RF Prevnar 13 (PF) 0.5 mL syringe 0.5 ml IM ONCE Qty: 0.5 0RF Rx Instructions: as a single dose Pneumovax-23 25 mcg/0.5 mL solution 0.5 ml IM ONCE Qty: 0.5 0RF Rx Instructions: SINGLE DOSE TO BE COMPLETED 8 WEEKS AFTER PCV13 RECEIVED clindamycin phosphate 1 % gel 1 applic topical DAILY Qty: 60 0RF Rx Instructions: Apply to affected area of vulva once daily for 30 days. oxcarbazepine [Trileptal] 600 mg tablet 600 mg PO BID clonazepam 0.5 mg tablet 0.5 mg PO DAILY triamcinolone acetonide 0.025 % cream 1 applic topical BID Qty: 15 1RF lithium carbonate 300 mg capsule 300 mg PO BEDTIME ramelteon 8 mg tablet 8 mg PO BEDTIME doxazosin 1 mg tablet 1 mg PO DAILY prednisolone acetate 1 % drops,suspension 2 drp EYE-RIGHT Q6H Qty: 15 0RF Stand Alone Forms: Patient Portal/API/Survey
--- NOTE | 2024-05-20 08:26 | DI.RAD.S_ITS ---
PROCEDURE: XR CHEST 1V INDICATIONS: n/v/d TECHNIQUE: One view of the chest was acquired. COMPARISON: [facility], CT, CT CHEST ABDOMEN PELVIS WITH CONTRAST, 02/28/2024, 17:01. [facility], CR, XR CHEST 2V, 10/26/2020, 11:24. FINDINGS: Surgical changes and devices: None. Lungs and pleura: Lungs are clear. No pleural effusions or pneumothorax. Mediastinum: Mediastinal contours appear normal. Heart size is normal. Bones and chest wall: No suspicious bony lesions. Overlying soft tissues appear unremarkable. IMPRESSION: Normal portable chest. Dictated by: Jericho Drake M.D. on 05/20/2024 at 8:14 Approved by: Jericho Drake M.D. on 05/20/2024 at 8:14
--- NOTE | 2024-05-20 08:44 | EKG_ITS ---
[address] [address] Test Date: 2024-05-20 Pat Name: Lindsay Cuellar Department: [facility] Room: Gender: Female Play Therapist: RADHA : 1995 Requested By: Order Number: [id number] Reading MD: Scott Patel Measurements Intervals [place] Rate: 51 P: 56 LA: 128 QRS: 43 QRSD: 84 T: 39 QT: 444 QTc: 409 Interpretive Statements Sinus bradycardia Electronically Signed On 05-20-2024 18:25:22 PDT by Scott Patel
[2024-05-20] MEDS: KETOROLAC 30 MG/ML VIAL 15 MG IV (09:09)
[2024-05-20] MEDS: SODIUM CHLORIDE 0.9% 1,000 ML 1000 ML IV (09:10)
[2024-05-20] MEDS: ONDANSETRON 4 MG/2 ML INJ IV (09:10)
[2024-05-20 09:13] LABS: Add Manual Diff / Slide Review NO; Basophils Absolute Auto 0 /uL (0-100); Basophils Percent Auto 0.3 % (0-2); Eosinophils Absolute Auto 0 /uL (0-450); Hematocrit 32.4 % (36-46); Hemoglobin 10.9 g/dL (12.0-16.0); Lymphocytes Absolute Auto 800 /uL (1100-4500); Lymphocytes Percent Auto 10.3 % (25-40); Mean Corpuscular HGB Conc 33.6 % (30-36); Mean Corpuscular Hemoglobin 31.6 PG (26-34); Monocytes Absolute Auto 300 /uL (0-900); Monocytes Percent Auto 4.4 % (3-14); Neutrophils Absolute Auto 6600 /uL (1500-7000); Platelet Count 167 X10^3/uL (150-400); Red Blood Cell Count 3.45 X10^6/uL (4.0-5.2); Red Cell Distribution Width 13.6 % (11.6-14.8); White Blood Cell Count 7.7 X10^3/uL (4.5-11.0)
[2024-05-20 09:26] LABS: Alanine Aminotransferase 20 IU/L (<35); Albumin 4.3 g/dL (3.5-5.0); Albumin Globulin Ratio 1.5 (1.0-2.8); Alkaline Phosphatase 58 U/L (38-126); Aspartate Aminotransferase 22 IU/L (14-36); BUN Creatinine Ratio 19.2 (6-22); Bilirubin Total 0.7 mg/dL (0.2-1.3); Blood Urea Nitrogen 14 mg/dL (7-17); Calcium 9.4 mg/dL (8.4-10.2); Carbon Dioxide 16 mmol/L (22-32); Chloride 109 mmol/L (98-107); Creatine Kinase 63 U/L (30-135); Estimated Glomerular Filt Rate > 60 mL/min (>60); Globulin 2.9 g/dL (1.7-4.1); Glucose 115 mg/dL (70-100); HEMOLYSIS < 15 (0-50); Lactate (Lactic Acid) 1.1 mmol/L (0.7-2.1); Lipase 80 U/L (23-300); Potassium 4.2 mmol/L (3.4-5.1); Sodium 137 mmol/L (137-145); Total Protein 7.2 g/dL (6.3-8.2)
[2024-05-20 09:29] LABS: C-Reactive Protein Quant < 0.5 mg/dL (<1.0)
[2024-05-20 09:31] LABS: Influenza A - CEPHEID Flu A NEGATIVE (NEGATIVE); Influenza B - CEPHEID Flu B NEGATIVE (NEGATIVE); Respiratory Syncytial Virus Negative (Negative)
[2024-05-20 09:32] LABS: COVID-19 CEPHEID 4-PLEX PCR Negative (Negative)
[2024-05-20 09:35] LABS: Erythrocyte Sedimentation Rate 6 MM/HR (0-20)
[2024-05-20 09:38] LABS: NT-proBNP (BNP-Adult 18+) 1130 pg/mL (<125); Troponin I < 0.012 ng/mL (0.01-0.034)
[2024-05-20 09:43] LABS: Procalcitonin 0.053 ng/mL (<0.5)
[2024-05-20] MEDS: LORazepam 2 MG/ML INJ 0.5 MG IV (09:57)
--- NOTE | 2024-05-20 10:19 | PC.NURSE ---
c/o b/l leg cramps . Dr. Todd aware. Ativan given Iv.
--- NOTE | 2024-05-20 10:21 | DI.CT.S_ITS ---
PROCEDURE: CT ABDOMEN PELVIS W CON INDICATIONS: n/v/diarrhea/abd pain, had post LP headache ysterday TECHNIQUE: After the administration of intravenous contrast, axial sections acquired from the lung bases to the pubic symphysis. Coronal and sagittal reformats were performed. For radiation dose reduction, the following was used: automated exposure control, adjustment of mA and/or kV according to patient size. COMPARISON: None. FINDINGS: Image quality: Diagnostic. Lower Chest: No significant findings. ABDOMEN: Liver: No solid mass. Portal edema. Gallbladder: Diffuse wall thickening. Biliary ducts: No biliary dilation. Pancreas: No ductal dilation. Spleen: Size is within normal limits. Adrenal Glands: No adrenal nodules. Kidneys and Ureters: No hydronephrosis. No solid mass. No complex renal cystic lesion which requires follow up. Stomach and Bowel: Normal colonic caliber, without significant wall thickening. Peritoneum: No abnormal intraperitoneal fluid. No free air. Ventral Wall: No significant ventral hernia. Abdominal Nodes: No retroperitoneal or mesenteric adenopathy by size criteria. Vessels: Aorta and inferior vena cava are normal in size. PELVIS: Pelvic Organs: Right ovarian hemorrhagic follicle measuring 3.6 cm. Bladder: No bladder wall thickening, accounting for underdistention. Pelvic Nodes: No enlarged lymph nodes. Miscellaneous: No inguinal hernias are seen. Bones: No aggressive osseous abnormality. IMPRESSION: Intact right ovarian hemorrhagic follicle measuring 2.6 cm. Suspected fluid overload, with diffuse gallbladder wall thickening and periportal edema. Acute hepatitis would also have a similar appearance. Dictated by: Sunny Washington M.D. on 05/20/2024 at 12:12 Approved by: Sunny Washington M.D. on 05/20/2024 at 12:15
--- NOTE | 2024-05-20 10:21 | DI.CT.S_ITS ---
PROCEDURE: CT HEAD/BRAIN WO CON INDICATIONS: n/v/diarrhea/abd pain, had post LP headache ysterday TECHNIQUE: Noncontrast 4.5 mm thick angled axial sections acquired from the foramen magnum to the vertex, with coronal and sagittal reformats. For radiation dose reduction, the following was used: automated exposure control, adjustment of mA and/or kV according to patient size. COMPARISON: [facility], MR, MR BRAIN WITH/WITHOUT CONTRAST, 05/17/2024, 12:51. [facility], CT, CT HEAD/BRAIN WO CON, 05/19/2024, 12:05. FINDINGS: Image quality: Diagnostic. CSF spaces: Basal cisterns are patent. No extra-axial fluid collections. Ventricles are normal in size and shape. Brain: No midline shift. No intracranial masses or hemorrhage. Aaron-white matter interface is normal. Skull and face: Calvarium and visualized facial bones are intact, without suspicious lesions. Sinuses: Visualized sinuses and mastoids are clear. IMPRESSION: No acute intracranial pathology. Similar size of the ventricles compared with priors. Dictated by: Sunny Washington M.D. on 05/20/2024 at 12:18 Approved by: Sunny Washington M.D. on 05/20/2024 at 12:18
[2024-05-20 10:31] LABS: Lithium 0.5 mmol/L (0.6-1.2)
[2024-05-20 10:34] LABS: Ethanol (ETOH) < 10 mg/dL
[2024-05-20] MEDS: OXcarbazepine 150 MG TABLET 600 MG PO (10:35)
[2024-05-20] MEDS: SODIUM CHLORIDE 0.9% 1,000 ML 150 ML IV (11:45)
--- NOTE | 2024-05-20 12:45 | DI.US.S_ITS ---
PROCEDURE: US ABDOMEN LIMITED INDICATIONS: gallbladder edema, n/v TECHNIQUE: Real-time scanning was performed of the abdominal and retroperitoneal organs, with image documentation. COMPARISON: None. FINDINGS: Liver: Liver is normal in size and homogeneous in echotexture. Gallbladder: No gallstones. No wall thickening. No pericholecystic edema. Negative sonographic Donis's sign. Biliary ducts: Intrahepatic bile ducts are non-dilated. Extrahepatic bile duct caliber measures 4 mm. Normal is 6-7 mm or less in diameter, or 10 mm or less post-cholecystectomy. Pancreas: Visualized portions of the pancreas are sonographically normal. Miscellaneous: No free abdominal fluid. IMPRESSION: Normal right upper quadrant ultrasound. Dictated by: Sunny Washington M.D. on 05/20/2024 at 13:56 Approved by: Sunny Washington M.D. on 05/20/2024 at 13:57
[2024-05-20 13:00] LABS: Appearance Urine UA CLEAR; Bilirubin Urine UA 1+ (NEGATIVE); Glucose Urine UA NEGATIVE (Negative); Ketones Urine UA 3+ (NEGATIVE); Leukocyte Esterase Urine UA NEGATIVE (NEGATIVE); Nitrite Urine UA NEGATIVE (Negative); Occult Blood Urine UA NEGATIVE (Negative); Protein Urine UA 1+ (Negative)
[2024-05-20 13:01] LABS: Color Urine UA Dark Yellow; pH Urine UA 6.5 (4.5-8.0)
[2024-05-20 13:05] LABS: Ur Creatinine Normal (Normal); Ur Specific Gravity Normal (Normal); Urine Amphetamines Negative (Negative); Urine Barbiturates Negative (Negative); Urine Benzodiazepines Positive (Negative); Urine Cocaine Negative (Negative); Urine MDMA Negative (Negative); Urine Methadone Negative (Negative); Urine Methamphetamines Negative (Negative); Urine Opiates Negative (Negative); Urine Oxycodone Negative (Negative); Urine Phencyclidine Negative (Negative); Urine THC Positive (Negative); Urine Tricyclic Antidepressant Negative (Negative); Urine pH Normal (Normal)
[2024-05-20 13:06] LABS: Bacteria Urine Occasional (0-1); Culture Indicated Urine Cult Not Indicated; Ictotest Urine Negative (Negative); RBC Urine 0-1/HPF (0-5/HPF); Squamous Epithelial Cell Urine 0-1 /HPF (0-5/HPF); Urine Volume 10mL (spun); WBC Urine 0-1/HPF (0-5/HPF)
[2024-05-20 13:07] LABS: Mucus Urine 1+ (Negative)
[2024-05-20] MEDS: droPERidol 2.5 MG/ML VIAL 1.25 MG IV (13:25)
--- NOTE | 2024-05-20 15:01 | P.CONS_ITS ---
History of Present Illness Consult details Date Patient Seen: 05/20/24 Time Patient Seen: 15:01 Chief complaint: nausea/diarrhea, headache Reason for consult: concern for post dural puncture headache Requesting provider: Ira Todd Narrative: Pt returns to ED for recurrence of ART/N/V fro yesterday. Epidural blood patch was performed yesterday with transient relief of symptoms, but returned soon after leaving the ED. N/V appear to be a large part of the complaint, with also a headache. Further workup in the ED today including labs and imaging were largely unremarkable, and do not explain pt's symptoms. From yesterday's note: 28-year-old female with complex history including seizure disorder/epilepsy, systemic mastocytosis, dysautonomia, pots, seronegative rheumatoid arthritis, behcets, presents with complaint of headache with persistent N/V after undergoing lumbar puncture approximately 24 hours ago. ART onset was within hours of returning home from ED for evaluation of CMV(+) lab test with concerns for encephalopathy. CSF studies were negative and she was discharged home. CT head today, and MRI yesterday were both unremarkable per report. ART is described as worse with sitting upright or standing, and some resolution with lying supine. Pt also reports persistent N/V, unable to hold even small sips of water down. Pt denies fever, and denies ART prior to LP. Meds Home Medications and Allergies Home Medications Medication Instructions Recorded Confirmed Type clonazepam 0.5 mg tablet 0.5 mg PO DAILY 11/15/19 09/22/20 History oxcarbazepine 600 mg tablet 600 mg PO BID 11/15/19 09/22/20 History (Trileptal) clindamycin phosphate 1 % topical 1 applic topical DAILY 01/15/20 09/22/20 Rx gel hidradenitis supperativa #60 grams triamcinolone acetonide 0.025 % 1 applic topical BID dermatosis 09/22/20 09/22/20 Rx topical cream #15 grams doxazosin 1 mg tablet 1 mg PO DAILY 12/03/20 12/03/20 History lithium carbonate 300 mg capsule 300 mg PO BEDTIME 12/03/20 12/03/20 History ramelteon 8 mg tablet 8 mg PO BEDTIME 12/03/20 12/03/20 History pneumoc 13-isidro conj-dip cr(PF) 0.5 0.5 ml IM ONCE #0.5 mL 12/09/20 Rx mL IM syringe (Prevnar 13 (PF)) pneumococcal 23-isidro ps vaccine 25 0.5 ml IM ONCE #0.5 mL 12/09/20 Rx mcg/0.5 mL injection solution (Pneumovax-23) varicella-zoster glycoE vacc-[id number] 0.5 ml IM ONCE #1 ea 12/09/20 Rx adj(PF) 50 mcg/0.5 mL IM susp, kit (Shingrix (PF)) prednisolone acetate 1 % eye 2 drp EYE-RIGHT Q6H #15 mL 12/13/20 Rx drops,suspension Allergies Allergy/AdvReac Type Severity Reaction Status Date / Time dapsone Allergy Verified 05/19/24 11:32 erythromycin base Allergy Verified 05/19/24 11:32 Exam Vital Signs (past 8 hours): - 05/20/24 08:07 05/20/24 08:07 05/20/24 08:13 Temperature 98.4 F Pulse Rate 53 L 53 L Respiratory Rate 16 Blood Pressure 126/61 126/61 Pulse Oximetry 100 100 Oxygen Delivery Method Room Air Room Air 05/20/24 08:30 05/20/24 08:30 05/20/24 08:50 Temperature Pulse Rate 54 L 53 L 54 L Respiratory Rate 16 19 17 Blood Pressure 122/80 Pulse Oximetry 100 100 100 Oxygen Delivery Method Room Air 05/20/24 08:50 05/20/24 09:00 05/20/24 09:00 Temperature Pulse Rate 51 L Respiratory Rate 20 Blood Pressure 120/80 117/75 Pulse Oximetry 100 Oxygen Delivery Method 05/20/24 09:30 05/20/24 09:30 05/20/24 10:00 Temperature Pulse Rate 50 L Respiratory Rate 15 Blood Pressure 117/84 125/69 Pulse Oximetry 100 Oxygen Delivery Method 05/20/24 10:00 05/20/24 10:30 05/20/24 10:30 Temperature Pulse Rate 48 L 52 L Respiratory Rate 15 19 Blood Pressure 122/75 Pulse Oximetry 100 100 Oxygen Delivery Method Room Air 05/20/24 11:00 05/20/24 11:00 05/20/24 11:44 Temperature Pulse Rate 53 L 60 Respiratory Rate 34 H Blood Pressure 133/70 Pulse Oximetry 100 94 Oxygen Delivery Method 05/20/24 11:56 05/20/24 11:56 05/20/24 12:00 Temperature Pulse Rate 57 L 54 L Respiratory Rate 26 H 36 H Blood Pressure 130/69 Pulse Oximetry 99 Oxygen Delivery Method 05/20/24 12:00 05/20/24 12:01 05/20/24 12:01 Temperature Pulse Rate 52 L 55 L Respiratory Rate 21 21 Blood Pressure 135/73 Pulse Oximetry 100 100 Oxygen Delivery Method 05/20/24 12:30 05/20/24 12:30 05/20/24 13:32 Temperature Pulse Rate 53 L 60 Respiratory Rate 26 H 22 Blood Pressure 139/68 123/62 Pulse Oximetry 100 100 Oxygen Delivery Method Room Air Oxygen Delivery Method Room Air Back/Spine/Pelvis Other: needle stick lower back consistent with LP and yesterday's blood patch. No erythema, tenderness or pain Objective Labs 05/20/24 09:02 05/20/24 09:02 Labs: Laboratory Results - last 24 hr 05/20/24 05/20/24 05/20/24 08:51 09:02 12:55 WBC 7.7 D RBC 3.45 L Hgb 10.9 L Hct 32.4 L MCV 94.0 MCH 31.6 MCHC 33.6 RDW 13.6 Plt Count 167 Neut % (Auto) 85.0 H Lymph % (Auto) 10.3 L [place] % (Auto) 4.4 Eos % (Auto) 0.0 L Baso % (Auto) 0.3 Neut # (Auto) 6600 Lymph # (Auto) 800 L [place] # (Auto) 300 Eos # (Auto) 0 Baso # (Auto) 0 ESR 6 Sodium 137 Potassium 4.2 Chloride 109 H Carbon Dioxide 16 L BUN 14 Creatinine 0.73 Estimated GFR > 60 BUN/Creatinine Ratio 19.2 Glucose 115 H Lactate 1.1 Calcium 9.4 Total Bilirubin 0.7 AST 22 ALT 20 Alkaline Phosphatase 58 Total Creatine Kinase 63 Troponin I < 0.012 C-Reactive Protein < 0.5 NT-Pro-B Natriuret Pep 1130 H Total Protein 7.2 Albumin 4.3 Globulin 2.9 Albumin/Globulin Ratio 1.5 Lipase 80 Procalcitonin 0.053 Urine Color Dark yellow Urine Appearance Clear Urine pH 6.5 Ur Specific [place] 1.020 Urine Protein 1+ H Urine Glucose (UA) Negative Urine Ketones 3+ H Urine Occult Blood Negative Urine Nitrate Negative Urine Bilirubin 1+ H Ur Bilirubin Confirm Negative Urine Urobilinogen 1.0 Ur Leukocyte Esterase Negative Urine RBC 0-1/hpf Urine WBC 0-1/hpf Ur Squamous Epith Cells 0-1 /hpf Urine Bacteria Occasional (0-1) D Urine Mucus 1+ H Ur Culture Indicated? Cult not indicated Vol Urine Centrifuged 10ml (spun) U Opiates 300ng/mL cut Negative Ur Oxycodone Screen Negative Urine Methadone Screen Negative Ur Barbiturates Screen Negative U Tricyclic Antidepress Negative Ur Phencyclidine Scrn Negative Ur Amphetamines Screen Negative U Methamphetamines Scrn Negative Ur MDMA Scrn (Ecstasy) Negative U Benzodiazepines Scrn Positive H [place] 0.5 L Urine Cocaine Screen Negative U Marijuana (THC) Screen Positive H Urine Specific [place] Ethyl Alcohol < 10 Ur Creatinine SARS-CoV-2 (PCR) Negative Influenza A (RT-PCR) Flu a negative Influenza B (RT-PCR) Flu b negative RSV (PCR) Negative 05/20/24 12:55 WBC RBC Hgb Hct MCV MCH MCHC RDW Plt Count Neut % (Auto) Lymph % (Auto) [place] % (Auto) Eos % (Auto) Baso % (Auto) Neut # (Auto) Lymph # (Auto) [place] # (Auto) Eos # (Auto) Baso # (Auto) ESR Sodium Potassium Chloride Carbon Dioxide BUN Creatinine Estimated GFR BUN/Creatinine Ratio Glucose Lactate Calcium Total Bilirubin AST ALT Alkaline Phosphatase Total Creatine Kinase Troponin I C-Reactive Protein NT-Pro-B Natriuret Pep Total Protein Albumin Globulin Albumin/Globulin Ratio Lipase Procalcitonin Urine Color Urine Appearance Urine pH Normal Ur Specific [place] Urine Protein Urine Glucose (UA) Urine Ketones Urine Occult Blood Urine Nitrate Urine Bilirubin Ur Bilirubin Confirm Urine Urobilinogen Ur Leukocyte Esterase Urine RBC Urine WBC Ur Squamous Epith Cells Urine Bacteria Urine Mucus Ur Culture Indicated? Vol Urine Centrifuged U Opiates 300ng/mL cut Ur Oxycodone Screen Urine Methadone Screen Ur Barbiturates Screen U Tricyclic Antidepress Ur Phencyclidine Scrn Ur Amphetamines Screen U Methamphetamines Scrn Ur MDMA Scrn (Ecstasy) U Benzodiazepines Scrn [place] Urine Cocaine Screen U Marijuana (THC) Screen Urine Specific [place] Normal Ethyl Alcohol Ur Creatinine Normal SARS-CoV-2 (PCR) Influenza A (RT-PCR) Influenza B (RT-PCR) RSV (PCR) [facility] Medical History Dermatitis Memory impairment Depression Migraines Chicken pox Behcet's disease Seizures Chronic joint pain Surgical History Anesthesia History of bone marrow biopsy [place] teeth removed No pertinent past surgical history Family History Father Mental health problem Mother Mental health problem Brother Mental health problem Sister Mental health problem Grandmother Mental health problem Aneurysm Grandfather Hypertension Hyperlipidemia Mental health problem Grandmother Hypertension Hyperlipidemia Psoriatic arthritis Tobacco & Substance Use Smoking Status: Never smoker Assessment & Plan Assessment & Plan narrative: 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 Complex medical history. Discussed with pt and father about repeating the epidural blood patch. Repeating the procedure incurs the same risk as before, and we discussed seeking further care with neurology if symptoms are not improved with a repeat patch. Procedure: Seated. Sterile prep/drape - Chloroprep. L4-5 lido local. Hustead advanced until clear ANAT with saline at 5cm. No paresthesias, heme, or CSF. Sterile blood draw by RN, 15mL of pt's blood injected slowly into the epidural space. Pt denied pain, paresthesia, or fullness in the back with injection. VSS. Tolerated well. Same precautions as yesterday, however, we are unlikely to repeat a blood patch a third time, as the risk/benefit profile is narrowing. This was discussed with pt and father. Time-Based Coding :: [TOTAL MINUTES] spent with patient and on the chart (including review of chart, obtaining history, exam, reviewing outside data, placing orders, documenting exam and treatment plan, and counseling patient) on [DATE].
[2024-05-20] MEDS: diphenhydrAMINE 50 MG/ML VIAL IV (17:41)
== END 2024-05-20 19:42 | disposition home or self-care (01) ==
PROVIDERS: Emergency Medicine; Emergency Provider Student in an Organized Health Care Education/Training Program
DX: G97.1 Other reaction to spinal and lumbar puncture (principal); R11.2 Nausea with vomiting, unspecified; R10.9 Unspecified abdominal pain; R25.2 Cramp and spasm; R00.1 Bradycardia, unspecified; Y84.4 Aspiration of fluid as the cause of abnormal reaction of the patient, or of later complication, without mention of misadventure at the time of the procedure; G40.909 Epilepsy, unspecified, not intractable, without status epilepticus
CPT/HCPCS: 0241U; 36415; 62273; 70450; 71045; 74177; 76705; 80053; 80178; 80305; 80320; 81001; 82550; 82962; 83605; 83690; 83880; 84145; 84484; 85025; 85651; 86140; 87040; 93005; 96361; 96374; 96375; 99284; 99285; J1200; J1790; J1885; J2060; J2405; Q9967

== ENCOUNTER 2024-12-02 11:07 | Emergency (ER) | payer OTHER, SELFPAY ==
[2024-12-02] VITALS (8 sets, daily range): BP systolic 104–114; BP diastolic 54–66; PULSE 63–74; RESP 12–16; TEMP 36.6–36.8; O2SAT 96–100; BMI 26.8
--- NOTE | 2024-12-02 11:49 | ED.AMS ---
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 She also so has quick posturing increased arm hand tremor jerking dizziness nausea and fall full body movements with jerking twitching and shaking. She also vomited twice and had some diarrhea abdominal cramps. Other than what is stated 14 point review of system is negative. Related Data Home Medications ?Medication ?Instructions ?Recorded ?Confirmed clonazepam 0.5 mg tablet 0.5 mg PO DAILY 11/15/19 09/22/20 oxcarbazepine 600 mg tablet 600 mg PO BID 11/15/19 09/22/20 (Trileptal) doxazosin 1 mg tablet 1 mg PO DAILY 12/03/20 12/03/20 lithium carbonate 300 mg capsule 300 mg PO BEDTIME 12/03/20 12/03/20 ramelteon 8 mg tablet 8 mg PO BEDTIME 12/03/20 12/03/20 Previous Rx's ?Medication ?Instructions ?Recorded clindamycin phosphate 1 % topical 1 applic topical DAILY 01/15/20 gel hidradenitis supperativa #60 grams triamcinolone acetonide 0.025 % 1 applic topical BID dermatosis 09/22/20 topical cream #15 grams pneumoc 13-isidro conj-dip cr(PF) 0.5 0.5 ml IM ONCE #0.5 mL 12/09/20 mL IM syringe (Prevnar 13 (PF)) pneumococcal 23-isidro ps vaccine 25 0.5 ml IM ONCE #0.5 mL 12/09/20 mcg/0.5 mL injection solution (Pneumovax-23) varicella-zoster glycoE vacc-AS01B 0.5 ml IM ONCE #1 ea 10/19/21 adj(PF) 50 mcg/0.5 mL IM susp, kit (Shingrix (PF)) prednisolone acetate 1 % eye 2 drp EYE-RIGHT Q6H #15 mL 12/13/20 drops,suspension Allergies Allergy/AdvReac Type Severity Reaction Status Date / Time dapsone Allergy Verified 12/02/24 11:37 erythromycin base Allergy Verified 12/02/24 11:37 Review of Systems Review of Systems ROS Unobtainable: All systems reviewed & are unremarkable except as noted in HPI and below Patient History Medical History Dermatitis Memory impairment Depression Migraines Chicken pox Behcet's disease Seizures Chronic joint pain Surgical History Anesthesia History of bone marrow biopsy [place] teeth removed No pertinent past surgical history Family History Father Mental health problem Mother Mental health problem Brother Mental health problem Sister Mental health problem Grandmother Mental health problem Aneurysm Grandfather Hypertension Hyperlipidemia Mental health problem Grandmother Hypertension Hyperlipidemia Psoriatic arthritis alcohol intake frequency: holidays/special occasions only Exam Narrative Exam Narrative: GENERAL: [29] year old patient appears stated age. Well-developed patient, in mild distress. HEAD: Atraumatic. Normocephalic. EYES: Pupils equal round and reactive. Extraocular motions intact. No scleral icterus. No injection or drainage. ENT: Nose without bleeding, purulent drainage. Throat without erythema, tonsillar hypertrophy or exudate. Airway patent. NECK: Trachea midline. Non tender CARDIOVASCULAR: Regular rate and rhythm without murmurs, gallops, or rubs. RESPIRATORY: Clear to auscultation. Breath sounds equal bilaterally. No wheezes, rales, or rhonchi. GASTROINTESTINAL: Abdomen soft, non-tender, nondistended. EXTREMITIES: No edema or joint tenderness. BACK: Nontender without deformity or crepitance. No flank tenderness. NEURO: AOx3. SKIN: No rash or erythema of visible areas Initial Vital Signs Initial Vital Signs: Vital Signs Blood Pressure 104/54 L 12/02/24 11:30 Course Orders Ordered: ED Orders 12/02/24 12:13 CT head/brain wo con Stat 12/02/24 12:14 Acetaminophen Stat Complete Blood Count AUTO DIFF Stat Comprehensive Metabolic Panel Stat Lactate (Lactic Acid) Stat PTT Partial Thromboplastin [place] Stat Prolactin Stat Prothrombin Time INR Stat Salicylate Stat Thyroid Stimulating Hormone Stat 12/02/24 12:30 Blood Culture Stat Osmolality, Serum Stat 12/02/24 13:58 Covid-19 + FLU A/B + RSV - PCR Stat 12/02/24 14:09 Urinalysis and Microscopic Stat Urine Culture Stat Urine Drug Screen, Rapid Stat 12/02/24 16:09 BNP [NT-proBNP (BNP-Adult 18+)] Stat Trop I [Troponin I] Stat Discontinued Medications Lactated Ringer's (Lactated Ringers) 1,000 mls @ 1,000 mls/hr IV BOLUS ONE Stop: 12/02/24 13:12 Last Infusion: 12/02/24 13:45 Dose: Infused Documented By: Admin: 12/02/24 12:40 Dose: 1,000 mls/hr Documented By: PRIYA Vital Signs Vital signs: Vital Signs - 8 hr 12/02/24 11:30 12/02/24 11:31 12/02/24 11:31 Temperature 97.8 F Pulse Rate 69 72 Respiratory Rate 12 16 Blood Pressure 104/54 L 104/54 L Pulse Oximetry 100 99 Oxygen Delivery Method Room Air Room Air 12/02/24 12:00 12/02/24 12:00 12/02/24 12:33 Temperature Pulse Rate 74 69 Respiratory Rate Blood Pressure 106/56 L Pulse Oximetry 99 98 Oxygen Delivery Method 12/02/24 13:00 12/02/24 13:30 12/02/24 14:00 Temperature Pulse Rate 63 65 64 Respiratory Rate Blood Pressure Pulse Oximetry 99 96 98 Oxygen Delivery Method MDM - Altered Mental Status Lab Data 12/02/24 12:14 12/02/24 12:14 Labs: Lab Results 12/02/24 12/02/24 12/02/24 Range/Units 12:14 13:58 14:09 WBC 3.7 L (4.5-11.0) X10^3/uL RBC 3.74 L (4.0-5.2) X10^6/uL Hgb 11.8 L (12.0-16.0) g/dL Hct 35.3 L (36-46) % MCV 94.6 (80-100) fL MCH 31.6 (26-34) PG MCHC 33.4 (30-36) % RDW 13.1 (11.6-14.8) % Plt Count 150 (150-400) X10^3/uL Neut % (Auto) 70.2 (50-75) % Lymph % (Auto) 22.6 L (25-40) % [place] % (Auto) 3.8 (3-14) % Eos % (Auto) 2.8 (2-4) % Baso % (Auto) 0.6 (0-2) % Neut # (Auto) 2600 (3445-3879) /uL Lymph # (Auto) 800 L (4103-3869) /uL [place] # (Auto) 100 (0-900) /uL Eos # (Auto) 100 (0-450) /uL Baso # (Auto) 0 (0-100) /uL PT 11.3 (9.4-12.5) SECONDS INR 1.0 (0.9-1.3) APTT 27 (25.1-36.5) SECONDS Sodium 136 L (137-145) mmol/L Potassium 4.4 (3.4-5.1) mmol/L Chloride 106 (98-107) mmol/L Carbon Dioxide 23 (22-32) mmol/L BUN 16 (7-17) mg/dL Creatinine 0.93 (0.52-1.04) mg/dL Estimated GFR > 60 (>60) mL/min BUN/Creatinine Ratio 17.2 (6-22) Glucose 89 (70-99) mg/dL Lactate 0.7 (0.7-2.1) mmol/L Calcium 8.5 (8.4-10.2) mg/dL Total Bilirubin 0.3 (0.2-1.3) mg/dL AST 21 (14-36) IU/L ALT 14 (<35) IU/L Alkaline Phosphatase 74 (38-126) U/L Troponin I (0.01-0.034) ng/mL NT-Pro-B Natriuret Pep (<125) pg/mL Total Protein 7.1 (6.3-8.2) g/dL Albumin 4.3 (3.5-5.0) g/dL Globulin 2.8 (1.7-4.1) g/dL Albumin/Globulin Ratio 1.5 (1.0-2.8) TSH 1.62 (0.47-4.68) uIU/mL Prolactin 23.7 H (3.0-18.6) ng/mL Urine Color Yellow Urine Appearance Clear Urine pH 6.5 (4.5-8.0) Ur Specific [place] <=1.005 (1.000-1.035) Urine Protein Negative (Negative) Urine Glucose (UA) Negative (Negative) g/dL Urine Ketones Negative (NEGATIVE) Urine Occult Blood Negative (Negative) Urine Nitrate Negative (Negative) Urine Bilirubin Negative (NEGATIVE) Urine Urobilinogen 1.0 (0.2) E.U./dL Ur Leukocyte Esterase Negative (NEGATIVE) Urine RBC None seen (0-5/HPF) Urine WBC 0-1/hpf (0-5/HPF) Ur Squamous Epith Cells 0-1 /hpf (0-5/HPF) Urine Bacteria Occasional (0-1) (None) Ur Culture Indicated? Cult not indicated Vol Urine Centrifuged 10ml (spun) Salicylates < 1.0 (<20) mg/dL U Opiates 300ng/mL cut Negative (Negative) Ur Oxycodone Screen Negative (Negative) Urine Methadone Screen Negative (Negative) Acetaminophen < 10 (10-30) ug/mL Ur Barbiturates Screen Negative (Negative) U Tricyclic Antidepress Negative (Negative) Ur Phencyclidine Scrn Negative (Negative) Ur Amphetamines Screen Negative (Negative) U Methamphetamines Scrn Negative (Negative) Ur MDMA Scrn (Ecstasy) Negative (Negative) U Benzodiazepines Scrn Positive H (Negative) Urine Cocaine Screen Negative (Negative) U Marijuana (THC) Screen Positive H (Negative) Urine Specific [place] (Normal) Ur Creatinine (Normal) SARS-CoV-2 (PCR) Negative (Negative) Influenza A (RT-PCR) Flu a negative (NEGATIVE) Influenza B (RT-PCR) Flu b negative (NEGATIVE) RSV (PCR) Negative (Negative) 12/02/24 12/02/24 Range/Units 14:09 16:09 WBC (4.5-11.0) X10^3/uL RBC (4.0-5.2) X10^6/uL Hgb (12.0-16.0) g/dL Hct (36-46) % MCV (80-100) fL MCH (26-34) PG MCHC (30-36) % RDW (11.6-14.8) % Plt Count (150-400) X10^3/uL Neut % (Auto) (50-75) % Lymph % (Auto) (25-40) % [place] % (Auto) (3-14) % Eos % (Auto) (2-4) % Baso % (Auto) (0-2) % Neut # (Auto) (5826-1797) /uL Lymph # (Auto) (9273-1766) /uL [place] # (Auto) (0-900) /uL Eos # (Auto) (0-450) /uL Baso # (Auto) (0-100) /uL PT (9.4-12.5) SECONDS INR (0.9-1.3) APTT (25.1-36.5) SECONDS Sodium (137-145) mmol/L Potassium (3.4-5.1) mmol/L Chloride (98-107) mmol/L Carbon Dioxide (22-32) mmol/L BUN (7-17) mg/dL Creatinine (0.52-1.04) mg/dL Estimated GFR (>60) mL/min BUN/Creatinine Ratio (6-22) Glucose (70-99) mg/dL Lactate (0.7-2.1) mmol/L Calcium (8.4-10.2) mg/dL Total Bilirubin (0.2-1.3) mg/dL AST (14-36) IU/L ALT (<35) IU/L Alkaline Phosphatase (38-126) U/L Troponin I < 0.012 (0.01-0.034) ng/mL NT-Pro-B Natriuret Pep 213 H (<125) pg/mL Total Protein (6.3-8.2) g/dL Albumin (3.5-5.0) g/dL Globulin (1.7-4.1) g/dL Albumin/Globulin Ratio (1.0-2.8) TSH (0.47-4.68) uIU/mL Prolactin (3.0-18.6) ng/mL Urine Color Urine Appearance Urine pH Normal (4.5-8.0) Ur Specific [place] (1.000-1.035) Urine Protein (Negative) Urine Glucose (UA) (Negative) g/dL Urine Ketones (NEGATIVE) Urine Occult Blood (Negative) Urine Nitrate (Negative) Urine Bilirubin (NEGATIVE) Urine Urobilinogen (0.2) E.U./dL Ur Leukocyte Esterase (NEGATIVE) Urine RBC (0-5/HPF) Urine WBC (0-5/HPF) Ur Squamous Epith Cells (0-5/HPF) Urine Bacteria (None) Ur Culture Indicated? Vol Urine Centrifuged Salicylates (<20) mg/dL U Opiates 300ng/mL cut (Negative) Ur Oxycodone Screen (Negative) Urine Methadone Screen (Negative) Acetaminophen (10-30) ug/mL Ur Barbiturates Screen (Negative) U Tricyclic Antidepress (Negative) Ur Phencyclidine Scrn (Negative) Ur Amphetamines Screen (Negative) U Methamphetamines Scrn (Negative) Ur MDMA Scrn (Ecstasy) (Negative) U Benzodiazepines Scrn (Negative) Urine Cocaine Screen (Negative) U Marijuana (THC) Screen (Negative) Urine Specific [place] Normal (Normal) Ur Creatinine Normal (Normal) SARS-CoV-2 (PCR) (Negative) Influenza A (RT-PCR) (NEGATIVE) Influenza B (RT-PCR) (NEGATIVE) RSV (PCR) (Negative) Imaging Data CT scan - head: Radiologist's Impression: [address] [address] [address] Scan Report Signed Patient: Lindsay Cuellar MR#: [id number] : 1995 Acct:[id number] Age/Sex: 29 / F Date of Service: 12/02/24 Loc: ED Accession Number: [id number] Procedure: CT head/brain wo con Ordering Provider: Yong Louis D.O. PROCEDURE: CT HEAD/BRAIN WO CON INDICATIONS: ams TECHNIQUE: Noncontrast 4.5 mm thick angled axial sections acquired from the foramen magnum to the vertex, with coronal and sagittal reformats. For radiation dose reduction, the following was used: automated exposure control, adjustment of mA and/or kV according to patient size. COMPARISON: [facility], CT, CT HEAD/BRAIN WO CON, 05/20/2024, 10:31. FINDINGS: Image quality: Diagnostic. CSF spaces: Basal cisterns are patent. No extra-axial fluid collections. Ventricles are normal in size and shape. Brain: No midline shift. No intracranial mass effect or hemorrhage. Aaron-white matter interface is normal. Skull and face: Calvarium and visualized facial bones are intact, without suspicious lesions. Sinuses: Visualized sinuses and mastoids are clear. IMPRESSION: No acute intracranial pathology. MDM Narrative Medical decision making narrative: All lab work, vital signs, nurse triage note, medication list, previous ER visits, and all imaging studies reviewed. CT head showed no acute process. WBC 3.7 hemoglobin 11.8 platelets 150 INR 1.0 sodium 136 potassium 4.4 chloride 106 BUN 16 creatinine 0.93 glucose 89 lactic acid 0.7 LFTs normal troponin normal BNP 213 prolactin 23.7 urine normal other than positive benzos and marijuana COVID flu RSV negative GCS 15 nonfocal neuro exam Discharge Plan Departure Patient Disposition: Home Clinical Impression: Elevated prolactin level, Nausea vomiting and diarrhea Prescriptions: No Action Shingrix (PF) 50 mcg/0.5 mL suspension for reconstitution 0.5 ml IM ONCE Qty: 1 1RF Prevnar 13 (PF) 0.5 mL syringe 0.5 ml IM ONCE Qty: 0.5 0RF Rx Instructions: as a single dose Pneumovax-23 25 mcg/0.5 mL solution 0.5 ml IM ONCE Qty: 0.5 0RF Rx Instructions: SINGLE DOSE TO BE COMPLETED 8 WEEKS AFTER PCV13 RECEIVED clindamycin phosphate 1 % gel 1 applic topical DAILY Qty: 60 0RF Rx Instructions: Apply to affected area of vulva once daily for 30 days. oxcarbazepine [Trileptal] 600 mg tablet 600 mg PO BID clonazepam 0.5 mg tablet 0.5 mg PO DAILY triamcinolone acetonide 0.025 % cream 1 applic topical BID Qty: 15 1RF lithium carbonate 300 mg capsule 300 mg PO BEDTIME ramelteon 8 mg tablet 8 mg PO BEDTIME doxazosin 1 mg tablet 1 mg PO DAILY prednisolone acetate 1 % drops,suspension 2 drp EYE-RIGHT Q6H Qty: 15 0RF Stand Alone Forms: Patient Portal/API
--- NOTE | 2024-12-02 12:13 | DI.CT.S_ITS ---
PROCEDURE: CT HEAD/BRAIN WO CON INDICATIONS: ams TECHNIQUE: Noncontrast 4.5 mm thick angled axial sections acquired from the foramen magnum to the vertex, with coronal and sagittal reformats. For radiation dose reduction, the following was used: automated exposure control, adjustment of mA and/or kV according to patient size. COMPARISON: [facility], CT, CT HEAD/BRAIN WO CON, 05/20/2024, 10:31. FINDINGS: Image quality: Diagnostic. CSF spaces: Basal cisterns are patent. No extra-axial fluid collections. Ventricles are normal in size and shape. Brain: No midline shift. No intracranial mass effect or hemorrhage. Aaron- white matter interface is normal. Skull and face: Calvarium and visualized facial bones are intact, without suspicious lesions. Sinuses: Visualized sinuses and mastoids are clear. IMPRESSION: No acute intracranial pathology. Dictated by: Sunny Washington M.D. on 12/02/2024 at 11:31 Approved by: Sunny Washington M.D. on 12/02/2024 at 11:32
[2024-12-02 12:22] LABS: Add Manual Diff / Slide Review NO; Hematocrit 35.3 % (36-46); Hemoglobin 11.8 g/dL (12.0-16.0); Lymphocytes Absolute Auto 800 /uL (1100-4500); Mean Corpuscular HGB Conc 33.4 % (30-36); Mean Corpuscular Hemoglobin 31.6 PG (26-34); Mean Corpuscular Volume 94.6 fL (80-100); Platelet Count 150 X10^3/uL (150-400)
[2024-12-02 12:31] LABS: INR 1.0 (0.9-1.3); Prothrombin Time 11.3 SECONDS (9.4-12.5)
[2024-12-02 12:34] LABS: PTT Partial Thromboplastin Tim 27 SECONDS (25.1-36.5)
[2024-12-02 12:35] LABS: Acetaminophen < 10 ug/mL (10-30); Alanine Aminotransferase 14 IU/L (<35); Albumin 4.3 g/dL (3.5-5.0); Albumin Globulin Ratio 1.5 (1.0-2.8); Alkaline Phosphatase 74 U/L (38-126); Blood Urea Nitrogen 16 mg/dL (7-17); Calcium 8.5 mg/dL (8.4-10.2); Carbon Dioxide 23 mmol/L (22-32); Chloride 106 mmol/L (98-107); Estimated Glomerular Filt Rate > 60 mL/min (>60); Globulin 2.8 g/dL (1.7-4.1); Glucose 89 mg/dL (70-99); HEMOLYSIS < 15 (0-50); Lactate (Lactic Acid) 0.7 mmol/L (0.7-2.1); Potassium 4.4 mmol/L (3.4-5.1); Salicylate < 1.0 mg/dL (<20); Sodium 136 mmol/L (137-145); Total Protein 7.1 g/dL (6.3-8.2)
[2024-12-02] MEDS: LACTATED RINGERS 1,000 ML 1000 ML IV (12:40)
[2024-12-02 13:11] LABS: Thyroid Stimulating Hormone 1.62 uIU/mL (0.47-4.68)
[2024-12-02 14:18] LABS: Appearance Urine UA CLEAR; Bilirubin Urine UA NEGATIVE (NEGATIVE); Color Urine UA YELLOW; Glucose Urine UA NEGATIVE (Negative); Ketones Urine UA NEGATIVE (NEGATIVE); Leukocyte Esterase Urine UA NEGATIVE (NEGATIVE); Nitrite Urine UA NEGATIVE (Negative); Occult Blood Urine UA NEGATIVE (Negative); Protein Urine UA NEGATIVE (Negative); Specific Gravity Urine UA <=1.005 (1.000-1.035); Urobilinogen Urine UA 1.0 E.U./dL (0.2)
[2024-12-02 14:25] LABS: UR Morphine/Opiate cutoff 300 Negative (Negative); Ur Specific Gravity Normal (Normal); Urine MDMA Negative (Negative); Urine Methamphetamines Negative (Negative); Urine Tetrahydrocannabinol Positive (Negative); Urine Tricyclic Antidepressant Negative (Negative)
[2024-12-02 14:31] LABS: Culture Indicated Urine Cult Not Indicated; pH Urine UA 6.5 (4.5-8.0)
[2024-12-02 14:45] LABS: Influenza A - CEPHEID Flu A NEGATIVE (NEGATIVE); Influenza B - CEPHEID Flu B NEGATIVE (NEGATIVE)
[2024-12-02 14:49] LABS: COVID-19 CEPHEID 4-PLEX PCR Negative (Negative)
[2024-12-02 16:37] LABS: NT-proBNP (BNP-Adult 18+) 213 pg/mL (<125); Troponin I < 0.012 ng/mL (0.01-0.034)
[2024-12-03 17:36] LABS: Osmolality, Serum 285 mOsmol/kg (275-295)
== END 2024-12-02 17:18 | disposition home or self-care (01) ==
PROVIDERS: Emergency Provider Family Medicine
DX: R79.89 Other specified abnormal findings of blood chemistry (principal); R11.2 Nausea with vomiting, unspecified; R19.7 Diarrhea, unspecified; R10.9 Unspecified abdominal pain
CPT/HCPCS: 36415; 70450; 80053; 80305; 80329; 81001; 83605; 83880; 83930; 84146; 84443; 84484; 85025; 85610; 85730; 87040; 87086; 87637; 96360; 99284; G0480; J7120